=== PATIENT | female | born 1950 | race American Indian/Alaskan Native ===

== ENCOUNTER 2020-03-10 03:32 | Inpatient (IN) | payer MEDICARE ==
[2020-03-10] MEDS ORDERED: ALBUTEROL 2.5 MG/3 ML NEBU IH ONE (03:37)
[2020-03-10] MEDS ORDERED: IPRATROPIUM 0.02% NEBU 2.5 ML IH ONE (03:37)
[2020-03-10] MEDS ORDERED: MAGNESIUM SULFATE 2 GM/50 ML BAG IV ONE (03:39)
[2020-03-10] MEDS ORDERED: LEVALBUTEROL 0.63 MG/3 ML NEBU IH ONE ×2 (03:40→14:46)
--- NOTE | 2020-03-10 03:45 | Emergency Department Report ---
ED Shortness of Breath HPI - General Chief Complaint: Dyspnea/Respdistress Stated Complaint: MAKENZIE Time Seen by Provider: 03/10/20 03:37 Source: patient, EMS Mode of arrival: Stretcher Limitations: Other - History of Present Illness Initial Comments: 69-year-old female the past medical history of hypertension and COPD currently on 3 L home oxygen therapy presents to the hospital with respiratory distress. Patient woke up with shortness of breath and was found hypoxic by EMS while on her 3 L nasal cannula at home. Patient also had tachypnea and tachycardic in the 130's. She received IM Solu-Medrol in route and was placed on nonrebreather with improvement in O2 saturation of 100%. Pt has a cough productive of yellow sputum. Patient denies chest pain, fever, COVID exposure. She also denies history of cardiac disease, current smoking, or previous history of intubations. Patient does not have any previous record in [facility] for review - Related Data Home Medications Medication Instructions Recorded Confirmed Last Taken No Known Home Medications [No 03/11/20 03/11/20 Unknown Reported Home Medications] Allergies Allergy/AdvReac Type Severity Reaction Status Date / Time albuterol Allergy Unknown Verified 03/10/20 03:40 ED Review of Systems ROS: Stated complaint: MAKENZIE Other details as noted in HPI Comment: All other systems reviewed and negative ED Past Medical Hx - Past Medical History Previous Medical History?: Yes Hx Hypertension: Yes Hx COPD: Yes - Social History Smoking Status: Never Smoker Substance Use Type: None - Medications Home Medications: Home Medications Medication Instructions Recorded Confirmed Last Taken Type No Known Home Medications [No 03/11/20 03/11/20 Unknown History Reported Home Medications] ED Physical Exam - General Limitations: Other - Other Other exam information: General: Acute respiratory distress Head: Atraumatic Eyes: normal appearance ENT: Moist mucous membranes Neck: Normal appearance, no midline tenderness Chest: Tachypnea, says he must use, breathless with speaking, diminished bilateral breath sounds with wheezing CV: Tachycardic regular rhythm Abdomen: Soft, normal bowel sounds, nontender, nondistended, no rebound or guarding Back: Normal inspection Extremity: Mild bilateral edema without calf tenderness or leg exam Neuro: Alert O x 3, no facial asymmetry, speech clear, no gross motor sensory deficit Psych: Appropriate behavior Skin: No rash ED Course Vital Signs 03/10/20 03/10/2003/10/20 03:35 03:36 03:45 Temperature 99.0 F Pulse Rate 126 H 131 H Pulse Rate [ 116 H Anterior Bilateral Throughout] Respiratory 18 30 H Rate Respiratory 24 Rate [Anterior Bilateral Throughout] Blood Pressure Blood Pressure [Left] O2 Sat by Pulse 100 100 Oximetry 03/10/20 03/10/20 03/10/20 03:52 04:04 04:15 Temperature Pulse Rate 107 H 113 H Pulse Rate [ Anterior Bilateral Throughout] Respiratory 18 25 H Rate Respiratory Rate [Anterior Bilateral Throughout] Blood Pressure 109/65 Blood Pressure 165/88 [Left] O2 Sat by Pulse 91 100 Oximetry 03/10/20 03/10/20 03/10/20 04:20 04:23 04:30 Temperature Pulse Rate 111 H 116 H 114 H Pulse Rate [ Anterior Bilateral Throughout] Respiratory 25 H 22 Rate Respiratory Rate [Anterior Bilateral Throughout] Blood Pressure 104/64 Blood Pressure [Left] O2 Sat by Pulse 100 100 Oximetry 03/10/20 03/10/20 03/10/20 04:45 04:46 05:00 Temperature Pulse Rate 108 H 104 H 102 H Pulse Rate [ Anterior Bilateral Throughout] Respiratory 24 26 H 25 H Rate Respiratory Rate [Anterior Bilateral Throughout] Blood Pressure 107/86 107/86 107/62 Blood Pressure [Left] O2 Sat by Pulse 100 100 99 Oximetry 03/10/20 03/10/20 03/10/20 05:15 05:30 05:45 Temperature Pulse Rate 100 H 96 H 98 H Pulse Rate [ Anterior Bilateral Throughout] Respiratory 25 H 25 H 25 H Rate Respiratory Rate [Anterior Bilateral Throughout] Blood Pressure 111/61 110/60 108/59 Blood Pressure [Left] O2 Sat by Pulse 97 96 97 Oximetry 03/10/20 03/10/20 03/10/20 06:00 06:15 06:22 Temperature Pulse Rate 95 H 96 H Pulse Rate [ 102 H Anterior Bilateral Throughout] Respiratory 22 25 H Rate Respiratory 26 H Rate [Anterior Bilateral Throughout] Blood Pressure 112/58 113/64 Blood Pressure [Left] O2 Sat by Pulse 97 98 Oximetry 03/10/20 03/10/20 03/10/20 06:30 06:45 06:52 Temperature Pulse Rate 92 H 89 Pulse Rate [ Anterior Bilateral Throughout] Respiratory 25 H 25 H 30 H Rate Respiratory Rate [Anterior Bilateral Throughout] Blood Pressure 120/65 109/58 Blood Pressure [Left] O2 Sat by Pulse 98 99 100 Oximetry 03/10/20 03/10/20 03/10/20 08:15 08:30 08:45 Temperature Pulse Rate 93 H 101 H 98 H Pulse Rate [ Anterior Bilateral Throughout] Respiratory 25 H 16 23 Rate Respiratory Rate [Anterior Bilateral Throughout] Blood Pressure 113/62 123/66 111/65 Blood Pressure [Left] O2 Sat by Pulse 100 97 98 Oximetry 03/10/20 03/10/20 03/10/20 09:00 09:15 09:30 Temperature Pulse Rate 94 H 95 H 97 H Pulse Rate [ Anterior Bilateral Throughout] Respiratory 18 22 21 Rate Respiratory Rate [Anterior Bilateral Throughout] Blood Pressure 124/67 122/64 120/63 Blood Pressure [Left] O2 Sat by Pulse 97 98 99 Oximetry 03/10/20 03/10/20 03/10/20 09:45 10:00 10:15 Temperature Pulse Rate 98 H 100 H 102 H Pulse Rate [ Anterior Bilateral Throughout] Respiratory 24 24 23 Rate Respiratory Rate [Anterior Bilateral Throughout] Blood Pressure 117/61 118/65 118/59 Blood Pressure [Left] O2 Sat by Pulse 97 97 97 Oximetry 03/10/20 03/10/20 03/10/20 10:23 10:30 10:45 Temperature Pulse Rate 105 H 94 H Pulse Rate [ Anterior Bilateral Throughout] Respiratory 16 19 19 Rate Respiratory Rate [Anterior Bilateral Throughout] Blood Pressure 115/60 116/56 Blood Pressure [Left] O2 Sat by Pulse 97 99 Oximetry 03/10/20 03/10/20 03/10/20 11:00 11:15 11:30 Temperature Pulse Rate 88 86 86 Pulse Rate [ Anterior Bilateral Throughout] Respiratory 21 27 H 23 Rate Respiratory Rate [Anterior Bilateral Throughout] Blood Pressure 119/63 128/63 127/62 Blood Pressure [Left] O2 Sat by Pulse 98 98 98 Oximetry 03/10/20 03/10/20 03/10/20 11:45 12:01 12:15 Temperature Pulse Rate 102 H 94 H 86 Pulse Rate [ Anterior Bilateral Throughout] Respiratory 20 22 23 Rate Respiratory Rate [Anterior Bilateral Throughout] Blood Pressure 123/63 146/71 136/70 Blood Pressure [Left] O2 Sat by Pulse 99 99 100 Oximetry 03/10/20 03/10/20 03/10/20 12:30 12:45 13:00 Temperature Pulse Rate 89 88 96 H Pulse Rate [ Anterior Bilateral Throughout] Respiratory 29 H 22 22 Rate Respiratory Rate [Anterior Bilateral Throughout] Blood Pressure 142/74 135/68 142/75 Blood Pressure [Left] O2 Sat by Pulse 100 100 99 Oximetry 03/10/20 03/10/20 03/10/20 13:15 13:30 13:45 Temperature Pulse Rate 96 H 95 H 91 H Pulse Rate [ Anterior Bilateral Throughout] Respiratory 31 H 29 H 28 H Rate Respiratory Rate [Anterior Bilateral Throughout] Blood Pressure 135/78 142/74 147/77 Blood Pressure [Left] O2 Sat by Pulse 100 99 99 Oximetry 03/10/20 03/10/20 03/10/20 14:00 14:15 14:30 Temperature Pulse Rate 88 91 H 89 Pulse Rate [ Anterior Bilateral Throughout] Respiratory 20 20 23 Rate Respiratory Rate [Anterior Bilateral Throughout] Blood Pressure 134/69 145/80 141/74 Blood Pressure [Left] O2 Sat by Pulse 99 99 99 Oximetry 03/10/20 03/10/20 03/10/20 14:55 15:01 15:15 Temperature Pulse Rate Pulse Rate [ Anterior Bilateral Throughout] Respiratory Rate Respiratory Rate [Anterior Bilateral Throughout] Blood Pressure 141/74 141/74 118/73 Blood Pressure [Left] O2 Sat by Pulse 100 95 100 Oximetry 03/10/20 03/10/20 03/10/20 15:30 15:45 16:00 Temperature Pulse Rate 90 85 81 Pulse Rate [ Anterior Bilateral Throughout] Respiratory 25 H 18 22 Rate Respiratory Rate [Anterior Bilateral Throughout] Blood Pressure 130/73 124/69 132/71 Blood Pressure [Left] O2 Sat by Pulse 100 100 100 Oximetry 03/10/20 03/10/20 03/10/20 16:15 16:30 16:45 Temperature Pulse Rate 81 80 83 Pulse Rate [ Anterior Bilateral Throughout] Respiratory 25 H 18 25 H Rate Respiratory Rate [Anterior Bilateral Throughout] Blood Pressure 133/73 139/73 135/73 Blood Pressure [Left] O2 Sat by Pulse 100 100 100 Oximetry 03/10/20 03/10/20 03/10/20 17:01 17:15 17:30 Temperature Pulse Rate 122 H 96 H 94 H Pulse Rate [ Anterior Bilateral Throughout] Respiratory 27 H 16 17 Rate Respiratory Rate [Anterior Bilateral Throughout] Blood Pressure 142/80 142/75 143/74 Blood Pressure [Left] O2 Sat by Pulse 100 98 93 Oximetry 03/10/20 03/10/20 03/10/20 17:45 18:01 18:15 Temperature Pulse Rate 94 H 114 H 98 H Pulse Rate [ Anterior Bilateral Throughout] Respiratory 12 33 H 24 Rate Respiratory Rate [Anterior Bilateral Throughout] Blood Pressure 144/83 143/118 144/83 Blood Pressure [Left] O2 Sat by Pulse 91 84 90 Oximetry 03/10/20 03/10/20 03/10/20 18:31 18:45 19:01 Temperature Pulse Rate 118 H 98 H 115 H Pulse Rate [ Anterior Bilateral Throughout] Respiratory 38 H 21 33 H Rate Respiratory Rate [Anterior Bilateral Throughout] Blood Pressure 155/93 141/68 141/68 Blood Pressure [Left] O2 Sat by Pulse 79 L 100 100 Oximetry 03/10/20 03/10/20 03/10/20 19:15 19:31 19:45 Temperature Pulse Rate 104 H 96 H 88 Pulse Rate [ Anterior Bilateral Throughout] Respiratory 25 H 24 19 Rate Respiratory Rate [Anterior Bilateral Throughout] Blood Pressure 141/68 110/90 110/90 Blood Pressure [Left] O2 Sat by Pulse 100 100 100 Oximetry 03/10/20 03/10/20 03/10/20 20:01 20:15 20:31 Temperature Pulse Rate 88 86 85 Pulse Rate [ Anterior Bilateral Throughout] Respiratory 18 24 15 Rate Respiratory Rate [Anterior Bilateral Throughout] Blood Pressure 110/90 110/90 110/90 Blood Pressure [Left] O2 Sat by Pulse 100 100 100 Oximetry 03/10/20 23:42 Temperature 98.8 F Pulse Rate 110 H Pulse Rate [ Anterior Bilateral Throughout] Respiratory 20 Rate Respiratory Rate [Anterior Bilateral Throughout] Blood Pressure Blood Pressure 168/82 [Left] O2 Sat by Pulse 100 Oximetry ED Medical Decision Making - Lab Data Result diagrams: 03/11/20 05:05 03/12/20 04:31 - EKG Data -: EKG Interpreted by Pa EKG shows normal: sinus rhythm, ST-T waves (no stemi) Rate: tachycardia (106) - Radiology Data Radiology results: report reviewed CHEST 1 VIEW INDICATION / CLINICAL INFORMATION: sob. COMPARISON: None available. FINDINGS: SUPPORT DEVICES: None. HEART / MEDIASTINUM: No significant abnormality. LUNGS / PLEURA: Hyperinflation. Mild chronic appearing interstitial lung disease. No evidence of pneumonia or pleural effusion. No pneumothorax. ADDITIONAL FINDINGS: No significant additional findings. IMPRESSION: 1. COPD. No definite acute superimposed disease. - Medical Decision Making Patient presents to the ED with acute respiratory distress, tachycardia, and tachypnea. Patient's respiratory status greatly improved with BiPAP support, Xopenex, Atrovent, and IV magnesium. Patient received IM Solu-Medrol in route to the hospital. Chest x-ray suggestive of COPD without infiltrate. EKG showed mild sinus tachycardia without ischemic changes. Patient will be admitted to the hospital for further treatment of acute COPD exacerbation. Patient did develop a global headache after arrival to the ED. She denied blurry vision, nausea, vomiting, focal numbness or weakness. Patient treated with morphine 4 mg and Zofran 4 mg IV abg obtained with results pending at dispo Critical Care Time: Yes Critical care time in (mins) excluding proc time.: 35 Critical care attestation.: If time is entered above; I have spent that time in minutes in the direct care of this critically ill patient, excluding procedure time. ED Disposition Clinical Impression: COPD with acute exacerbation, On home O2 Disposition: OP ADMIT IP TO THIS HOSP Is pt being admited?: Yes Condition: Stable Time of Disposition: 05:04
--- NOTE | 2020-03-10 04:03 | XRay Report ---
CHEST 1 VIEW INDICATION / CLINICAL INFORMATION: sob. COMPARISON: None available. FINDINGS: SUPPORT DEVICES: None. HEART / MEDIASTINUM: No significant abnormality. LUNGS / PLEURA: Hyperinflation. Mild chronic appearing interstitial lung disease. No evidence of pneu monia or pleural effusion. No pneumothorax. ADDITIONAL FINDINGS: No significant additional findings. IMPRESSION: 1. COPD. No definite acute superimposed disease. Signer Name: Esther Waddell MD Signed: 03/10/2020 3:59 AM Workstation Name: [id number]
[2020-03-10] MEDS: LEVALBUTEROL 0.63 MG/3 ML NEBU IH PRN (04:28)
[2020-03-10] MEDS ORDERED: MORPHINE 4 MG/1 ML INJ IV ONE (04:36)
[2020-03-10] MEDS ORDERED: ONDANSETRON 4 MG/2 ML INJ IV ONE (04:36)
[2020-03-10 04:40] LABS: Basophils % (Auto) 0.9 % (0.0-1.8); Eosinophils # (Auto) 0.1 K/mm3 (0.0-0.4); Eosinophils % (Auto) 1.1 % (0.0-4.3); Hematocrit 34.4 % (30.3-42.9); Hemoglobin 11.1 gm/dl (10.1-14.3); Lymphocytes # (Auto) 1.1 K/mm3 (1.2-5.4); Lymphocytes % (Auto) 20.2 % (13.4-35.0); Mean Corpuscular HGB Conc 32 % (30-34); Mean Corpuscular Volume 94 fl (79-97); Monocytes # (Auto) 0.7 K/mm3 (0.0-0.8); Monocytes % (Auto) 12.8 % (0.0-7.3); Platelet Count 328 K/mm3 (140-440); Red Blood Count 3.66 M/mm3 (3.65-5.03); Red Cell Distribution Width 16.5 % (13.2-15.2)
[2020-03-10 04:42] LABS: Alanine Aminotransferase 11 units/L (7-56); BUN/Creatinine Ratio 16; Blood Urea Nitrogen 13 mg/dL (7-17); Calcium 9.8 mg/dL (8.4-10.2); Hemolysis Index 5
[2020-03-10 05:20] LABS: INR 1.01 (0.87-1.13)
[2020-03-10 05:21] LABS: Partial Thromboplastin Time 32.6 Sec. (24.2-36.6)
[2020-03-10 06:13] LABS: ABG Base Excess 1.5 mmol/L (-2.0-3.0); ABG HCO3 26.6 mmol/L (20.0-26.0); ABG Methemoglobin 0.5 % (0.0-1.5); ABG Oxygen Saturation 98.3 % (95.0-99.0); ABG PCO2 44.2 mm Hg; ABG PH 7.398 pH Units (7.350-7.450)
[2020-03-10] MEDS ORDERED: ACETAMINOPHEN 325 MG TAB PO PRN (07:59)
[2020-03-10] MEDS ORDERED: METOCLOPRAMIDE 10 MG/2 ML INJ IV PRN (07:59)
[2020-03-10] MEDS ORDERED: DEXTROSE 50% IN WATER (25GM) 50 ML SYRINGE IV PRN (07:59)
--- NOTE | 2020-03-10 08:18 | History and Physical Report ---
History of Present Illness Date of examination: 03/10/20 Date of admission: 03/10/20 05:32 Chief complaint: SOB History of present illness: This is a 70-year-old female with hypertension, COPD on home oxygen 2L NC, asthma, former smoker (1/2 ppd x 51 years- quit 2 years ago) who presents on 03/10 with complaints of difficulty in breathing since the morning. She states that she also was sweating and had palpitations which happens when she has difficulty breathing. She also becomes hypertensive with difficulty in breathing. She states she has had a productive cough with yellow sputum for about a week prior to presentation. Upon arrival by EMS she was found to be hypoxic on her usual 2 L of oxygen via nasal cannula, tachypneic and tachycardic in the 130s and subsequently placed on a nonrebreather and given IM Solu-Medrol and her SPO2 improved to 100%. She was transported to [facility] for further work-up by ambulance. She denies any chest pain, nausea vomiting, excessive fatigue, recent weight loss, recent travel or any contact with persons with known COVID-19. She endorses a left shoulder blade nonradiating burning pain for over a year and she states she has not had any recent falls. She states that she has had loose watery stools usually x3 per day on and off for about 3 months. She states there is no blood in her stools. Also complains of hemoptysis for the last couple days at night. States that she was in pulmonary rehab for about a year then moved to a personal intermediate and now lives at home with family and occasionally uses a walker at home. Work up in emergency department included a chest x-ray which showed COPD with no acute processes, unremarkable labs, and an ABG 7.3/44.2/121/26.6 on 30% FiO2. She was given Xopenex, Atrovent, IV m agnesium and placed on continuous BiPAP in the emergency department. She will be admitted to the hospitalist service to the [facility] in continues BiPAP, abx therapy and pulmonary care consult has been placed. Of note she does not have a primary care physician or followed by a fence erector outpatient. Advanced care planning done at bedside Past History Past Medical History: COPD, hypertension, other (asthma) Past Surgical History: cholecystectomy, Other (Lumbar discectomy) Social history: lives with family, full code. denies: smoking (1/2 ppd x 51 years- quit 2018), alcohol abuse, prescription drug abuse Family history: hypertension, other (Asthm,COPD) Medications and Allergies Allergies Allergy/AdvReac Type Severity Reaction Status Date / Time albuterol Allergy Unknown Verified 03/10/20 03:40 Active Meds: Active Medications Acetaminophen (Tylenol) 650 mg PO Q6H PRN PRN Reason: Pain MILD(1-3)/Fever >100.5/RABAGO Dextrose (D50w (25gm) Syringe) 50 ml IV Q30MIN PRN; Protocol PRN Reason: Hypoglycemia Enoxaparin Sodium (Enoxaparin) 40 mg SUB-Q QDAY@2200 OLEG Famotidine (Pepcid) 20 mg IV QDAY OLEG Insulin Human Lispro (Humalog) 0 unit SUB-Q ACHS OLEG; Protocol Ipratropium Broadbent (Atrovent) 0.5 mg IH Q8HRT OLEG Levalbuterol HCl (Xopenex) 0.63 mg IH Q8HRT PRN PRN Reason: Shortness Of Breath Metoclopramide HCl (Reglan) 10 mg IV Q6H PRN PRN Reason: Nausea And Vomiting Oxycodone/Acetaminophen (Percocet 5/325) 1 tab PO Q6H PRN PRN Reason: Pain, Moderate (4-6) Sodium Chloride (Sodium Chloride Flush Syringe 10 Ml) 10 ml IV BID OLEG Sodium Chloride (Sodium Chloride Flush Syringe 10 Ml) 10 ml IV PRN PRN PRN Reason: LINE FLUSH Review of Systems Constitutional: sweats (With difficulty breathing x1 day), no weight loss, no weight gain, no fever, no chills, no anorexia, no fatigue, no weakness, no malaise, no lethargy, no chronic headaches Eyes: right: other (" Busted eye vessel") Ears, nose, mouth and throat: nasal congestion, epistaxis (Over the past couple nights), headache (With elevated blood pressure), no ear pain, no ear discharge, no tinnitis, no decreased hearing, no nose pain, no nasal discharge, no sore throat, no post-nasal drip, no vertigo Cardiovascular: palpitations (With difficulty in breathing), shortness of breath (X1 day), high blood pressure, no chest pain, no orthopnea, no rapid/irregular heart beat, no edema, no syncope, no lightheadedness, no leg edema Respiratory: cough with sputum (Thick yellow sputum for 1 week), shortness of breath (For 1 day), home oxygen (2 L cannula), no excessive sputum, no hemoptysis Gastrointestinal: diarrhea (On and off for greater than a year), no abdominal pain, no nausea, no vomiting, no hematemesis, no BRBPR, no hematochezia Genitourinary Female: hematuria, no dyspareunia, no pelvic pain, no flank pain, no dysuria, no urinary frequency, no urgency Rectal: no pain, no incontinence, no bleeding, no itching Musculoskeletal: arm numbness/tingling (Hand with numbness and pinprick sensation for about 1 week), no neck pain, no shooting arm pain, no low back pain, no shooting leg pain, no leg numbness/tingling, no limitation of motion, no frequent falls Integumentary: no deferred, no rash, no pruritis, no redness, no sores, no wounds Neurological: numbness, tingling, no head injury, no transient paralysis, no paralysis, no weakness, no seizures, no syncope, no tremors, no ataxia, no lack of coordination, no headaches, no migraines, no double vision, no loss of vision, no hearing difficulties Psychiatric: no anxiety, no suicidal ideation, no hopelessness, no anxiety attacks Endocrine: nocturia, no cold intolerance, no heat intolerance, no polyphagia, no excessive thirst, no polydipsia, no polyuria Hematologic/Lymphatic: no easy bruising, no easy bleeding, no lymphadenopathy, no lymphedema Allergic/Immunologic: wheezing, no allergic rhinitis Exam - Constitutional Vitals: Temp Pulse Resp BP Pulse Ox 99.0 F 89 30 H 109/58 100 03/10/20 03:36 03/10/20 06:45 03/10/20 06:52 03/10/20 06:45 03/10/20 06:52 General appearance: Present: mild distress - EENT Eyes: Present: PERRL, EOM intact ENT: hearing intact, clear oral mucosa - Neck Neck: Present: normal ROM - Respiratory Respiratory effort: normal Respiratory: right: rhonchi, bilateral: wheezing (inspiratory) - Cardiovascular Rhythm: regular Heart Sounds: Present: S1 & S2. Absent: systolic murmur, diastolic murmur - Extremities Extremities: no ischemia, pulses intact, pulses symmetrical, No edema, normal temperature, normal color, Full ROM Extremity abnormal: clubbing Peripheral Pulses: within normal limits - Abdominal General gastrointestinal: Present: soft, non-tender, non-distended, normal bowel sounds - Integumentary Integumentary: Present: clear (scab to left FA), warm, dry - Musculoskeletal Musculoskeletal: strength equal bilaterally - Psychiatric Psychiatric: appropriate mood/affect, memory intact, cooperative - Neurologic Neurologic: CNII-XII intact, no focal deficits, moves all extremities HEART Score - HEART Score History: Slightly suspicious EKG: Normal Age: > 65 Troponin: Troponin T < 0.010 ng/mL (0.00-0.029) 03/10/20 03:54 Troponin: < normal limit Results - Labs CBC & Chem 7: 03/10/20 03:54 03/10/20 03:54 Labs: Laboratory Last Values WBC 5.6 K/mm3 (4.5-11.0) 03/10/20 03:54 RBC 3.66 M/mm3 (3.65-5.03) 03/10/20 03:54 Hgb 11.1 gm/dl (10.1-14.3) 03/10/20 03:54 Hct 34.4 % (30.3-42.9) 03/10/20 03:54 MCV 94 fl (79-97) 03/10/20 03:54 MCH 30 pg (28-32) 03/10/20 03:54 MCHC 32 % (30-34) 03/10/20 03:54 RDW 16.5 % (13.2-15.2) H 03/10/20 03:54 Plt Count 328 K/mm3 (140-440) 03/10/20 03:54 Lymph % (Auto) 20.2 % (13.4-35.0) 03/10/20 03:54 [place] % (Auto) 12.8 % (0.0-7.3) H 03/10/20 03:54 Eos % (Auto) 1.1 % (0.0-4.3) 03/10/20 03:54 Baso % (Auto) 0.9 % (0.0-1.8) 03/10/20 03:54 Lymph # 1.1 K/mm3 (1.2-5.4) L 03/10/20 03:54 [place] # 0.7 K/mm3 (0.0-0.8) 03/10/20 03:54 Eos # 0.1 K/mm3 (0.0-0.4) 03/10/20 03:54 Baso # 0.0 K/mm3 (0.0-0.1) 03/10/20 03:54 Seg Neutrophils % 65.0 % (40.0-70.0) 03/10/20 03:54 Seg Neutrophils # 3.6 K/mm3 (1.8-7.7) 03/10/20 03:54 PT 13.4 Sec. (12.2-14.9) 03/10/20 03:54 INR 1.01 (0.87-1.13) 03/10/20 03:54 APTT 32.6 Sec. (24.2-36.6) 03/10/20 03:54 ABG pH 7.398 pH Units (7.350-7.450) 03/10/20 05:20 ABG pCO2 44.2 mm Hg 03/10/20 05:20 ABG pO2 121.0 mm Hg (80.0-90.0) H 03/10/20 05:20 ABG HCO3 26.6 mmol/L (20.0-26.0) H 03/10/20 05:20 ABG O2 Saturation 98.3 % (95.0-99.0) 03/10/20 05:20 ABG O2 Content 14.4 (0.0-44) 03/10/20 05:20 ABG Base Excess 1.5 mmol/L (-2.0-3.0) 03/10/20 05:20 ABG Hemoglobin 10.5 gm/dl (12.0-16.0) L 03/10/20 05:20 ABG Carboxyhemoglobin 1.5 % (0.0-5.0) 03/10/20 05:20 ABG Methemoglobin 0.5 % (0.0-1.5) 03/10/20 05:20 Oxyhemoglobin 96.3 % (95.0-99.0) 03/10/20 05:20 FiO2 30 % 03/10/20 05:20 Sodium 146 mmol/L (137-145) H 03/10/20 03:54 Potassium 3.8 mmol/L (3.6-5.0) 03/10/20 03:54 Chloride 104.8 mmol/L (98-107) 03/10/20 03:54 Carbon Dioxide 29 mmol/L (22-30) 03/10/20 03:54 Anion Gap 16 mmol/L 03/10/20 03:54 BUN 13 mg/dL (7-17) 03/10/20 03:54 Creatinine 0.8 mg/dL (0.6-1.2) 03/10/20 03:54 Estimated GFR > 60 ml/min 03/10/20 03:54 BUN/Creatinine Ratio 16 % 03/10/20 03:54 Glucose 101 mg/dL (65-100) H 03/10/20 03:54 Calcium 9.8 mg/dL (8.4-10.2) 03/10/20 03:54 Total Bilirubin 0.30 mg/dL (0.1-1.2) 03/10/20 03:54 AST 16 units/L (5-40) 03/10/20 03:54 ALT 11 units/L (7-56) 03/10/20 03:54 Alkaline Phosphatase 60 units/L (35-129) 03/10/20 03:54 Troponin T < 0.010 ng/mL (0.00-0.029) 03/10/20 03:54 NT-Pro-B Natriuret Pep 170.1 pg/mL (0-900) 03/10/20 03:54 Total Protein 6.6 g/dL (6.3-8.2) 03/10/20 03:54 Albumin 4.0 g/dL (3.9-5) 03/10/20 03:54 Albumin/Globulin Ratio 1.5 % 03/10/20 03:54 - Imaging and Cardiology Chest x-ray: report reviewed - Diagnostic Impressions Diagnostic Impressions: 03/09 CXR no acute abnormalities except COPD changes noted. Rebollar/IV: IV Catheter Type [Right Hand] INT / Saline Lock Assessment and Plan VTE prophylaxis?: Chemical, Mechanical Plan of care discussed with patient/family: Yes - Patient Problems (1) COPD with acute exacerbation Current Visit: Yes Status: Acute Plan to address problem: -History of COPD uses home oxygen 2 L nasal cannula and asthma - On EMS arrival she was hypoxic and tachycardic was placed on a non rebreather with improvement of her SPO2 -Pulmonary consult, appreciate recommendations -Placed on continues BiPAP at emergency department and received Xopenex, Atrovent, IV magnesium -03/10 AB.3/44.2/121/26.6 on 30% FiO2 -IV Levaquin started -Atrovent, Xopenex, steroids started -Pulmonary hygiene -Continuous SPO2 monitor -RT to treat and evaluate (2) Hypertension Current Visit: Yes Status: Chronic Plan to address problem: -Resume home medications once updated -IV hydralazine PRN -Blood pressure monitoring per protocol (3) DVT prophylaxis Current Visit: Yes Status: Acute Plan to address problem: -Lovenox subcu -SCDs while in bed -GI prophylaxis with Pepcid IV (4) Full code status Current Visit: Yes Status: Acute
[2020-03-10] MEDS ORDERED: hydrALAZINE 20 MG/1 ML INJ IV PRN (09:06)
[2020-03-10] MEDS ORDERED: FAMOTIDINE 20 MG/2 ML INJ IV ONE (10:19)
[2020-03-10] MEDS ORDERED: oxyCODONE /ACETAMINOPHEN 5-325MG TAB ONE ×2 (10:20→17:37)
[2020-03-10] MEDS: FAMOTIDINE 20 MG/2 ML INJ IV SCH (10:23)
[2020-03-10] MEDS: oxyCODONE /ACETAMINOPHEN 5-325MG TAB PO PRN (10:23)
[2020-03-10] MEDS ORDERED: INSULIN LISPRO 100 UNIT/ML VIAL 3 mL SUB-Q SCH (11:30)
--- NOTE | 2020-03-10 12:23 | Consultation ---
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 Patient required bipap therapy secondary to increased work of breathing but has since been weaned off. Past History Past Medical History: COPD, hypertension, other (asthma) Past Surgical History: cholecystectomy, Other (Lumbar discectomy) Social history: lives with family, full code. denies: smoking (1/2 ppd x 51 years- quit 2017), alcohol abuse, prescription drug abuse Family history: hypertension, other (Asthm,COPD) Medications and Allergies Allergies Allergy/AdvReac Type Severity Reaction Status Date / Time albuterol Allergy Unknown Verified 03/10/20 03:40 Active Meds: Active Medications Acetaminophen (Tylenol) 650 mg PO Q6H PRN PRN Reason: Pain MILD(1-3)/Fever >100.5/RABAGO Enoxaparin Sodium (Enoxaparin) 40 mg SUB-Q QDAY@2200 OLEG Famotidine (Pepcid) 20 mg IV QDAY [facility] Last Admin: 03/10/20 10:23 Dose: 20 mg Documented by: Hydralazine HCl (Apresoline) 10 mg IV Q4HR PRN PRN Reason: Hypertension Levofloxacin/Dextrose (Levaquin 750mg/150ml) 750 mg in 150 mls @ 100 mls/hr IV Q48HR [facility]; Protocol Last Admin: 03/10/20 10:25 Dose: 100 mls/hr Documented by: Insulin Human Lispro (Humalog) 0 unit SUB-Q ACHS [facility]; Protocol Ipratropium [place] (Atrovent) 0.5 mg IH Q8HRT OLEG Levalbuterol HCl (Xopenex) 0.63 mg IH Q8HRT PRN PRN Reason: Shortness Of Breath Methylprednisolone Sodium Succinate (Solu-Medrol) 80 mg IV Q8HR OLEG Metoclopramide HCl (Reglan) 10 mg IV Q6H PRN PRN Reason: Nausea And Vomiting Oxycodone/Acetaminophen (Percocet 5/325) 1 tab PO Q6H PRN PRN Reason: Pain, Moderate (4-6) Last Admin: 08/19/20 10:23 Dose: 1 tab Documented by: Sodium Chloride (Sodium Chloride Flush Syringe 10 Ml) 10 ml IV BID OLEG Sodium Chloride (Sodium Chloride Flush Syringe 10 Ml) 10 ml IV PRN PRN PRN Reason: LINE FLUSH Physical Examination Vital signs: Vital Signs Pulse Resp Pulse Ox 126 H 18 100 03/10/20 03:35 03/10/20 03:35 03/10/20 03:35 General appearance: no acute distress, alert Eyes: non-icteric ENT: oropharynx moist Neck: supple, no JVD Effort: mildly labored Ascultation: Bilateral: diminished breath sounds Percussion: Bilateral: not dull Tactile fremitus: Bilateral: normal Cardiovascular: regular rate and rhythm Gastrointestinal: normoactive bowel sounds, soft, non-tender normal mental status, non-focal exam Results - Laboratory Findings CBC and BMP: 03/11/20 05:05 03/11/20 05:05 ABG ABG pH 7.398 pH Units (7.350-7.450) 03/10/20 05:20 ABG pCO2 44.2 mm Hg 03/10/20 05:20 ABG pO2 121.0 mm Hg (80.0-90.0) H 03/10/20 05:20 ABG O2 Saturation 98.3 % (95.0-99.0) 03/10/20 05:20 PT/INR, D-dimer PT 13.4 Sec. (12.2-14.9) 03/10/20 03:54 INR 1.01 (0.87-1.13) 03/10/20 03:54 Abnormal lab findings: Abnormal Labs 03/10/20 03/10/20 03/10/20 03:54 03:54 05:20 RDW 16.5 H [place] % (Auto) 12.8 H Lymph # 1.1 L ABG pO2 121.0 H ABG HCO3 26.6 H ABG Hemoglobin 10.5 L Sodium 146 H Glucose 101 H POC Glucose 03/10/20 09:02 RDW [place] % (Auto) Lymph # ABG pO2 ABG HCO3 ABG Hemoglobin Sodium Glucose POC Glucose 153 H - Diagnostic Findings Chest x-ray: image reviewed Assessment and Plan 70 y/o female with acute exacerbation of COPD 1. Agree with IV steroids 2. Suggest starting patient on BID pulmicort and brovana 3. Continue supplemental oxygen, per report, patient is on this at home 4. Calling the office to see if we have ever seen the patient before, we have never seen, it was confirmed. 5. Thanks for the consult. Will continue to follow with you.
[2020-03-10] MEDS: methylPREDNISolone Sod Succinate 125 MG/2 ML INJ IV SCH (14:26)
[2020-03-10] MEDS ORDERED: methylPREDNISolone Sod Succinate 125 MG/2 ML INJ ONE (14:46)
[2020-03-10] MEDS: IPRATROPIUM 0.02% NEBU 2.5 ML IH SCH (16:27)
[2020-03-10] MEDS: INSULIN LISPRO 100 UNIT/ML VIAL 3 mL SUB-Q SCH (17:25)
[2020-03-11] MEDS: LEVALBUTEROL 0.63 MG/3 ML NEBU IH PRN (00:39)
[2020-03-11] MEDS: IPRATROPIUM 0.02% NEBU 2.5 ML IH SCH ×4 (00:40→21:48)
[2020-03-11 05:31] LABS: Hematocrit 30.1 % (30.3-42.9); Hemoglobin 9.9 gm/dl (10.1-14.3); Mean Corpuscular HGB Conc 33 % (30-34); Mean Corpuscular Volume 92 fl (79-97); Platelet Count 275 K/mm3 (140-440); Red Blood Count 3.27 M/mm3 (3.65-5.03); Red Cell Distribution Width 16.1 % (13.2-15.2)
[2020-03-11 05:42] LABS: Blood Urea Nitrogen 18 mg/dL (7-17); Calcium 9.6 mg/dL (8.4-10.2); Hemolysis Index 11
[2020-03-11 05:47] LABS: BUN/Creatinine Ratio 26
[2020-03-11] MEDS: methylPREDNISolone Sod Succinate 125 MG/2 ML INJ IV SCH ×4 (06:41→21:44)
[2020-03-11 07:00] LABS: Band Neutrophils # (Manual) 0.4 K/mm3; Basophils % (Manual) 0 % (0.0-1.8); Eosinophils % (Manual) 0 % (0.0-4.3); Total Cells Counted 100
[2020-03-11 07:01] LABS: Ovalocytes Rare; Tear Drop Cells Rare
[2020-03-11 07:02] LABS: Platelet Estimate Consistent w Auto
[2020-03-11] MEDS: INSULIN LISPRO 100 UNIT/ML VIAL 3 mL SUB-Q SCH ×6 (07:54→21:45)
[2020-03-11] MEDS: ENOXAPARIN 40 MG/0.4 ML INJ SUB-Q SCH ×2 (07:55→21:45)
[2020-03-11] MEDS: BUDESONIDE 0.5 MG/2 ML NEBU IH SCH ×2 (08:21→21:47)
[2020-03-11] MEDS: ARFORMOTEROL 15 MCG/2 ML NEBU IH SCH ×2 (08:21→21:47)
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
[2020-03-11] MEDS: FAMOTIDINE 20 MG/2 ML INJ IV SCH (09:56)
[2020-03-11] MEDS: ALPRAZolam 0.25 MG TAB PO PRN (09:56)
[2020-03-11] MEDS: FAMOTIDINE 20 MG TAB PO SCH (09:58)
[2020-03-11] MEDS ORDERED: FUROSEMIDE 40 MG/4 ML INJ IV ONE (10:00)
[2020-03-11] MEDS: hydrALAZINE 25 MG TAB PO SCH ×2 (13:42→21:46)
--- NOTE | 2020-03-11 13:56 | Progress Note ---
Assessment and Plan - Patient Problems (1) COPD with acute exacerbation Current Visit: Yes Status: Acute Plan to address problem: -History of COPD uses home oxygen 2 L nasal cannula and asthma - On EMS arrival she was hypoxic and tachycardic was placed on a non rebreather with improvement of her SPO2 -Pulmonary consult, appreciate recommendations -Placed on continues BiPAP at emergency department and received Xopenex, Atrovent, IV magnesium -03/10 AB.3/44.2/121/26.6 on 30% FiO2 -IV Levaquin started -Atrovent, Xopenex, steroids started and added pulmicort and brovana -Pulmonary hygiene -Continuous SPO2 monitor -RT to treat and evaluate -SSI for steroid use -03/10 Hgb A1C: 4.9 (2) Hypertension Current Visit: Yes Status: Chronic Plan to address problem: -Hydralazine PO -IV hydralazine PRN -Blood pressure monitoring per protocol (3) DVT prophylaxis Current Visit: Yes Status: Acute Plan to address problem: -Lovenox subcu -SCDs while in bed -GI prophylaxis with Pepcid IV History Interval history: This is a 70-year-old female with hypertension, COPD on home oxygen 2L [place], asthma, former smoker (/ ppd x 51 years- quit 2 years ago) who presents on 03/10 with complaints of difficulty in breathing since the morning. S She states she has had a productive cough with yellow sputum for about a week prior to p resentation. Upon arrival by EMS she was found to be hypoxic on her usual 2 L of oxygen via nasal cannula, tachypneic and tachycardic in the 130s and subsequently placed on a nonrebreather and given IM Solu-Medrol and her SPO2 improved to 100%. Work up in emergency department included a chest x-ray which showed COPD with no acute processes, unremarkable labs, and an ABG 7.3/44.2/121/26.6 on 30% FiO2. She was weaned off BiPAP over the course the day yesterday and overnight she remained on nasal cannula. This morning she was placed on BiPAP for increased work of breathing and tachypnea hopefully being weaned off today. She was given Lasix 40 mg IV for elevated BNP and Ativan for anxiety. She will be transferred to [facility] today. -8/19: admit to [facility] for continuous BiPAP therapy however she was weaned off and was on nasal cannula over the night. Hospitalist Physical - Constitutional Vitals: Temp Pulse Resp BP Pulse Ox 97.7 F 75 32 H 122/74 99 03/11/20 08:00 03/11/20 13:42 03/11/20 08:21 03/11/20 13:42 03/11/20 04:00 General appearance: Present: no acute distress - EENT Eyes: Present: PERRL ENT: hearing intact - Neck Neck: Present: normal ROM - Respiratory Respiratory effort: normal Respiratory: bilateral: rhonchi - Cardiovascular Rhythm: regular Heart Sounds: Present: S1 & S2. Absent: systolic murmur, diastolic murmur - Extremities Extremities: no ischemia, pulses intact, pulses symmetrical, No edema, normal temperature, normal color, Full ROM Peripheral Pulses: within normal limits - Abdominal General gastrointestinal: soft, non-tender, non-distended, normal bowel sounds - Integumentary Integumentary: Present: clear, warm, dry - Psychiatric Psychiatric: appropriate mood/affect, cooperative - Neurologic Neurologic: CNII-XII intact, no focal deficits, moves all extremities - Allied Health Allied health notes reviewed: nursing, RT HEART Score - HEART Score EKG: Normal Age: > 65 Troponin: Troponin T < 0.010 ng/mL (0.00-0.029) 03/10/20 03:54 Troponin: < normal limit Results - Labs CBC & Chem 7: 03/11/20 05:05 03/11/20 05:05 Labs: Laboratory Last Values WBC 5.6 K/mm3 (4.5-11.0) 03/11/20 05:05 RBC 3.27 M/mm3 (3.65-5.03) L 03/11/20 05:05 Hgb 9.9 gm/dl (10.1-14.3) L 03/11/20 05:05 Hct 30.1 % (30.3-42.9) L 03/11/20 05:05 MCV 92 fl (79-97) 03/11/20 05:05 MCH 30 pg (28-32) 03/11/20 05:05 MCHC 33 % (30-34) 03/11/20 05:05 RDW 16.1 % (13.2-15.2) H 03/11/20 05:05 Plt Count 275 K/mm3 (140-440) 03/11/20 05:05 Lymph % (Auto) 20.2 % (13.4-35.0) 03/10/20 03:54 [place] % (Auto) 12.8 % (0.0-7.3) H 03/10/20 03:54 Eos % (Auto) 1.1 % (0.0-4.3) 03/10/20 03:54 Baso % (Auto) 0.9 % (0.0-1.8) 03/10/20 03:54 Lymph # 1.1 K/mm3 (1.2-5.4) L 03/10/20 03:54 [place] # 0.7 K/mm3 (0.0-0.8) 03/10/20 03:54 Eos # 0.1 K/mm3 (0.0-0.4) 03/10/20 03:54 Baso # 0.0 K/mm3 (0.0-0.1) 03/10/20 03:54 Add Manual Diff Complete 03/11/20 05:05 Total Counted 100 03/11/20 05:05 Seg Neutrophils % 65.0 % (40.0-70.0) 03/10/20 03:54 Seg Neuts % (Manual) 79.0 % (40.0-70.0) H 03/11/20 05:05 Band Neutrophils % 7.0 % 03/11/20 05:05 Lymphocytes % (Manual) 10.0 % (13.4-35.0) L 03/11/20 05:05 Reactive Lymphs % (Man) 0 % 03/11/20 05:05 Monocytes % (Manual) 4.0 % (0.0-7.3) 03/11/20 05:05 Eosinophils % (Manual) 0 % (0.0-4.3) 03/11/20 05:05 Basophils % (Manual) 0 % (0.0-1.8) 03/11/20 05:05 Metamyelocytes % 0 % 03/11/20 05:05 Myelocytes % 0 % 03/11/20 05:05 Promyelocytes % 0 % 03/11/20 05:05 Blast Cells % 0 % 03/11/20 05:05 Nucleated RBC % Not Reportable 03/11/20 05:05 Seg Neutrophils # 3.6 K/mm3 (1.8-7.7) 03/10/20 03:54 Seg Neutrophils # Man 4.4 K/mm3 (1.8-7.7) 03/11/20 05:05 Band Neutrophils # 0.4 K/mm3 03/11/20 05:05 Lymphocytes # (Manual) 0.6 K/mm3 (1.2-5.4) L 03/11/20 05:05 Abs React Lymphs (Man) 0.0 K/mm3 03/11/20 05:05 Monocytes # (Manual) 0.2 K/mm3 (0.0-0.8) 03/11/20 05:05 Eosinophils # (Manual) 0.0 K/mm3 (0.0-0.4) 03/11/20 05:05 Basophils # (Manual) 0.0 K/mm3 (0.0-0.1) 03/11/20 05:05 Metamyelocytes # 0.0 K/mm3 03/11/20 05:05 Myelocytes # 0.0 K/mm3 03/11/20 05:05 Promyelocytes # 0.0 K/mm3 03/11/20 05:05 Blast Cells # 0.0 K/mm3 03/11/20 05:05 WBC Morphology Not Reportable 03/11/20 05:05 Hypersegmented Neuts Not Reportable 03/11/20 05:05 Hyposegmented Neuts Not Reportable 03/11/20 05:05 Hypogranular Neuts Not Reportable 03/11/20 05:05 Smudge Cells Not Reportable 03/11/20 05:05 Toxic Granulation Not Reportable 03/11/20 05:05 Toxic Vacuolation Not Reportable 03/11/20 05:05 Dohle Bodies Not Reportable 03/11/20 05:05 Pelger-Huet Anomaly Not Reportable 03/11/20 05:05 Nilam Rods Not Reportable 03/11/20 05:05 Platelet Estimate Consistent w auto 03/11/20 05:05 Clumped Platelets Not Reportable 03/11/20 05:05 Plt Clumps, EDTA Not Reportable 03/11/20 05:05 Large Platelets Not Reportable 03/11/20 05:05 Giant Platelets Not Reportable 03/11/20 05:05 Platelet Satelliting Not Reportable 03/11/20 05:05 Plt Morphology Comment Not Reportable 03/11/20 05:05 RBC Morphology Not Reportable 03/11/20 05:05 Dimorphic RBCs Not Reportable 03/11/20 05:05 Polychromasia Not Reportable 03/11/20 05:05 Hypochromasia Not Reportable 03/11/20 05:05 Poikilocytosis Not Reportable 03/11/20 05:05 Anisocytosis Not Reportable 03/11/20 05:05 Microcytosis Not Reportable 03/11/20 05:05 Macrocytosis Not Reportable 03/11/20 05:05 Spherocytes Not Reportable 03/11/20 05:05 Pappenheimer Bodies Not Reportable 03/11/20 05:05 Sickle Cells Not Reportable 03/11/20 05:05 Target Cells Not Reportable 03/11/20 05:05 Tear Drop Cells Rare 03/11/20 05:05 Ovalocytes Rare 03/11/20 05:05 Helmet Cells Not Reportable 03/11/20 05:05 Quintero-Delevan Bodies Not Reportable 03/11/20 05:05 Perkins Rings Not Reportable 03/11/20 05:05 Moraima Cells Not Reportable 03/11/20 05:05 Bite Cells Not Reportable 03/11/20 05:05 Crenated Cell Not Reportable 03/11/20 05:05 Elliptocytes Not Reportable 03/11/20 05:05 Acanthocytes (Spur) Not Reportable 03/11/20 05:05 Rouleaux Not Reportable 03/11/20 05:05 Hemoglobin C Crystals Not Reportable 03/11/20 05:05 Schistocytes Not Reportable 03/11/20 05:05 Malaria parasites Not Reportable 03/11/20 05:05 Raul Bodies Not Reportable 03/11/20 05:05 Hem Pathologist Commnt No 03/11/20 05:05 PT 13.4 Sec. (12.2-14.9) 03/10/20 03:54 INR 1.01 (0.87-1.13) 03/10/20 03:54 APTT 32.6 Sec. (24.2-36.6) 03/10/20 03:54 ABG pH 7.398 pH Units (7.350-7.450) 03/10/20 05:20 ABG pCO2 44.2 mm Hg 03/10/20 05:20 ABG pO2 121.0 mm Hg (80.0-90.0) H 03/10/20 05:20 ABG HCO3 26.6 mmol/L (20.0-26.0) H 03/10/20 05:20 ABG O2 Saturation 98.3 % (95.0-99.0) 03/10/20 05:20 ABG O2 Content 14.4 (0.0-44) 03/10/20 05:20 ABG Base Excess 1.5 mmol/L (-2.0-3.0) 03/10/20 05:20 ABG Hemoglobin 10.5 gm/dl (12.0-16.0) L 03/10/20 05:20 ABG Carboxyhemoglobin 1.5 % (0.0-5.0) 03/10/20 05:20 ABG Methemoglobin 0.5 % (0.0-1.5) 03/10/20 05:20 Oxyhemoglobin 96.3 % (95.0-99.0) 03/10/20 05:20 FiO2 30 % 03/10/20 05:20 Sodium 142 mmol/L (137-145) 03/11/20 05:05 Potassium 4.6 mmol/L (3.6-5.0) D 03/11/20 05:05 Chloride 102.2 mmol/L (98-107) 03/11/20 05:05 Carbon Dioxide 30 mmol/L (22-30) 03/11/20 05:05 Anion Gap 14 mmol/L 03/11/20 05:05 BUN 18 mg/dL (7-17) H 03/11/20 05:05 Creatinine 0.7 mg/dL (0.6-1.2) 03/11/20 05:05 Estimated GFR > 60 ml/min 03/11/20 05:05 BUN/Creatinine Ratio 26 % 03/11/20 05:05 Glucose 188 mg/dL (65-100) H 03/11/20 05:05 POC Glucose 197 (70-105) H 03/11/20 13:16 Hemoglobin A1c 4.9 % (4-6) 03/10/20 08:35 Calcium 9.6 mg/dL (8.4-10.2) 03/11/20 05:05 Total Bilirubin 0.30 mg/dL (0.1-1.2) 03/10/20 03:54 AST 16 units/L (5-40) 03/10/20 03:54 ALT 11 units/L (7-56) 03/10/20 03:54 Alkaline Phosphatase 60 units/L (35-129) 03/10/20 03:54 Troponin T < 0.010 ng/mL (0.00-0.029) 03/10/20 03:54 NT-Pro-B Natriuret Pep 170.1 pg/mL (0-900) 03/10/20 03:54 Total Protein 6.6 g/dL (6.3-8.2) 03/10/20 03:54 Albumin 4.0 g/dL (3.9-5) 03/10/20 03:54 Albumin/Globulin Ratio 1.5 % 03/10/20 03:54 Rebollar/IV: IV Catheter Type [Right Hand] INT / Saline Lock Active Medications - Current Medications Current Medications: Generic Name Dose Route Start Last Admin Trade Name Freq PRN Reason Stop Dose Admin Acetaminophen 650 mg 03/10/20 07:59 Tylenol PO Q6H PRN Pain MILD(1-3)/Fever >100.5/RABAGO Alprazolam 0.25 mg 03/11/20 09:18 03/11/20 09:56 Xanax PO 0.25 mg Q8H PRN Administration Anxiety Arformoterol Tartrate 15 mcg 03/11/20 08:00 03/11/20 08:21 Brovana Nebu IH 15 mcg Q12HRT OLEG Administration Budesonide 0.5 mg 03/11/20 08:00 03/11/20 08:21 Pulmicort IH 0.5 mg Q12HRT OLEG Administration Enoxaparin Sodium 40 mg 03/10/20 22:00 03/11/20 07:55 Enoxaparin SUB-Q Not Given QDAY@2200 OLEG Famotidine 20 mg 03/11/20 10:00 03/11/20 09:58 Pepcid PO Not Given DAILY OLEG Hydralazine HCl 10 mg 03/10/20 09:06 Apresoline IV Q4HR PRN Hypertension Hydralazine HCl 25 mg 03/11/20 14:00 03/11/20 13:42 Apresoline PO 25 mg Q8HR OLEG Administration Insulin Human Lispro 0 unit 03/10/20 11:30 03/11/20 13:14 Humalog SUB-Q 2 unit ACHS OLEG Administration Protocol Ipratropium [place] 0.5 mg 03/10/20 16:00 03/11/20 08:21 Atrovent IH 0.5 mg Q8HRT OLEG Administration Levalbuterol HCl 0.63 mg 03/10/20 08:07 03/11/20 00:39 Xopenex IH 0.63 mg Q8HRT PRN Administration Shortness Of Breath Levofloxacin 750 mg 03/12/20 10:00 Levaquin PO 03/16/20 10:01 Q48HR OLEG Methylprednisolone Sodium Succinate 80 mg 03/10/20 14:00 03/11/20 13:43 Solu-Medrol IV 80 mg Q8HR OLEG Administration Metoclopramide HCl 10 mg 03/10/20 07:59 Reglan IV Q6H PRN Nausea And Vomiting Oxycodone/Acetaminophen 1 tab 03/10/20 07:59 03/10/20 10:23 Percocet 5/325 PO 1 tab Q6H PRN Administration Pain, Moderate (4-6) Sodium Chloride 10 ml 03/10/20 10:00 03/11/20 09:56 Sodium Chloride Flush Syringe 10 Ml IV 10 ml BID OLEG Administration Sodium Chloride 10 ml 03/10/20 07:59 Sodium Chloride Flush Syringe 10 Ml IV PRN PRN LINE FLUSH
[2020-03-12] MEDS: IPRATROPIUM 0.02% NEBU 2.5 ML IH SCH ×3 (00:58→15:03)
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
[2020-03-12] MEDS: methylPREDNISolone Sod Succinate 40 MG/1 ML INJ IV SCH ×3 (06:03→21:50)
[2020-03-12] MEDS: hydrALAZINE 25 MG TAB PO SCH ×3 (06:03→21:49)
[2020-03-12 06:47] LABS: Blood Urea Nitrogen 31 mg/dL (7-17); Calcium 10.1 mg/dL (8.4-10.2); Hemolysis Index 81
[2020-03-12 06:52] LABS: BUN/Creatinine Ratio 44
[2020-03-12] MEDS: BUDESONIDE 0.5 MG/2 ML NEBU IH SCH ×2 (07:57→19:54)
[2020-03-12] MEDS: ARFORMOTEROL 15 MCG/2 ML NEBU IH SCH ×2 (07:57→19:54)
[2020-03-12] MEDS: INSULIN LISPRO 100 UNIT/ML VIAL 3 mL SUB-Q SCH ×4 (08:30→22:00)
[2020-03-12] MEDS: levoFLOXacin 750 MG TAB PO SCH (09:33)
[2020-03-12] MEDS: FAMOTIDINE 20 MG TAB PO SCH (09:33)
[2020-03-12] MEDS: ALPRAZolam 0.25 MG TAB PO PRN ×2 (09:37→21:49)
--- NOTE | 2020-03-12 12:09 | Progress Note ---
Assessment and Plan - Patient Problems (1) COPD with acute exacerbation Current Visit: Yes Status: Acute Plan to address problem: -History of COPD uses home oxygen 2 L nasal cannula and asthma - On EMS arrival she was hypoxic and tachycardic was placed on a non rebreather with improvement of her SPO2 -Pulmonary consult, appreciate recommendations -Placed on continues BiPAP at emergency department and received Xopenex, Atrovent, IV magnesium -03/10 AB.3/44.2/121/26.6 on 30% FiO2 -IV Levaquin started -Atrovent, Xopenex, steroids started and added pulmicort and brovana -Pulmonary hygiene -Continuous SPO2 monitor -RT to treat and evaluate -SSI for steroid use -03/10 Hgb A1C: 4.9 (2) Hypertension Current Visit: Yes Status: Chronic Plan to address problem: -Hydralazine PO - Added lasix 20mg qday -IV hydralazine PRN -Blood pressure monitoring per protocol (3) DVT prophylaxis Current Visit: Yes Status: Acute Plan to address problem: -Lovenox subcu -SCDs while in bed -GI prophylaxis with Pepcid IV History Interval history: This is a 70-year-old female with hypertension, COPD on home oxygen 2L NC, asthma, former smoker (/ ppd x 51 years- quit 2 years ago) who presents on 03/10 with complaints of difficulty in breathing since the morning. S She states she has had a productive cough with yellow sputum for about a week prior to presentation. Upon arrival by EMS she was found to be hypoxic on her usual 2 L of oxygen via nasal cannula, tachypneic and tachycardic in the 130s and subsequently placed on a nonrebreather and given IM Solu-Medrol and her SPO2 improved to 100%. Work up in emergency department included a chest x-ray which showed COPD with no acute processes, unremarkable labs, and an ABG 7.3 /44.2/121/26.6 on 30% FiO2. She wore her BiPAP overnight and is on NC at the time of my exam. Lasix PO added per pulm suggestion. CM consulted for placement/social issues and claims of financial mishandling per patient. She states she was working on finding a new place to live and would like to return the [facility] where she was after pulmonary rehab. -03/10: admit to IMCU for continuous BiPAP therapy however she was weaned off and was on nasal cannula over the night. -03/11: transferred to med/surg. used BiPAP overnight. IV lasix and ativan Hospitalist Physical - Constitutional Vitals: Temp Pulse Resp BP Pulse Ox 98.4 F 85 18 141/77 94 03/12/20 04:29 03/12/20 07:57 03/12/20 07:57 03/12/20 06:03 03/12/20 07:58 General appearance: Present: no acute distress HEART Score - HEART Score EKG: Normal Age: > 65 Troponin: Troponin T < 0.010 ng/mL (0.00-0.029) 03/10/20 03:54 Troponin: < normal limit Results - Labs CBC & Chem 7: 03/11/20 05:05 03/12/20 04:31 Labs: Laboratory Last Values WBC 5.6 K/mm3 (4.5-11.0) 03/11/20 05:05 RBC 3.27 M/mm3 (3.65-5.03) L 03/11/20 05:05 Hgb 9.9 gm/dl (10.1-14.3) L 03/11/20 05:05 Hct 30.1 % (30.3-42.9) L 03/11/20 05:05 MCV 92 fl (79-97) 03/11/20 05:05 MCH 30 pg (28-32) 03/11/20 05:05 MCHC 33 % (30-34) 03/11/20 05:05 RDW 16.1 % (13.2-15.2) H 03/11/20 05:05 Plt Count 275 K/mm3 (140-440) 03/11/20 05:05 Lymph % (Auto) 20.2 % (13.4-35.0) 03/10/20 03:54 [place] % (Auto) 12.8 % (0.0-7.3) H 03/10/20 03:54 Eos % (Auto) 1.1 % (0.0-4.3) 03/10/20 03:54 Baso % (Auto) 0.9 % (0.0-1.8) 03/10/20 03:54 Lymph # 1.1 K/mm3 (1.2-5.4) L 03/10/20 03:54 [place] # 0.7 K/mm3 (0.0-0.8) 03/10/20 03:54 Eos # 0.1 K/mm3 (0.0-0.4) 03/10/20 03:54 Baso # 0.0 K/mm3 (0.0-0.1) 03/10/20 03:54 Add Manual Diff Complete 03/11/20 05:05 Total Counted 100 03/11/20 05:05 Seg Neutrophils % 65.0 % (40.0-70.0) 03/10/20 03:54 Seg Neuts % (Manual) 79.0 % (40.0-70.0) H 03/11/20 05:05 Band Neutrophils % 7.0 % 03/11/20 05:05 Lymphocytes % (Manual) 10.0 % (13.4-35.0) L 03/11/20 05:05 Reactive Lymphs % (Man) 0 % 03/11/20 05:05 Monocytes % (Manual) 4.0 % (0.0-7.3) 03/11/20 05:05 Eosinophils % (Manual) 0 % (0.0-4.3) 03/11/20 05:05 Basophils % (Manual) 0 % (0.0-1.8) 03/11/20 05:05 Metamyelocytes % 0 % 03/11/20 05:05 Myelocytes % 0 % 03/11/20 05:05 Promyelocytes % 0 % 03/11/20 05:05 Blast Cells % 0 % 03/11/20 05:05 Nucleated RBC % Not Reportable 03/11/20 05:05 Seg Neutrophils # 3.6 K/mm3 (1.8-7.7) 03/10/20 03:54 Seg Neutrophils # Man 4.4 K/mm3 (1.8-7.7) 03/11/20 05:05 Band Neutrophils # 0.4 K/mm3 03/11/20 05:05 Lymphocytes # (Manual) 0.6 K/mm3 (1.2-5.4) L 03/11/20 05:05 Abs React Lymphs (Man) 0.0 K/mm3 03/11/20 05:05 Monocytes # (Manual) 0.2 K/mm3 (0.0-0.8) 03/11/20 05:05 Eosinophils # (Manual) 0.0 K/mm3 (0.0-0.4) 03/11/20 05:05 Basophils # (Manual) 0.0 K/mm3 (0.0-0.1) 03/11/20 05:05 Metamyelocytes # 0.0 K/mm3 03/11/20 05:05 Myelocytes # 0.0 K/mm3 03/11/20 05:05 Promyelocytes # 0.0 K/mm3 03/11/20 05:05 Blast Cells # 0.0 K/mm3 03/11/20 05:05 WBC Morphology Not Reportable 03/11/20 05:05 Hypersegmented Neuts Not Reportable 03/11/20 05:05 Hyposegmented Neuts Not Reportable 03/11/20 05:05 Hypogranular Neuts Not Reportable 03/11/20 05:05 Smudge Cells Not Reportable 03/11/20 05:05 Toxic Granulation Not Reportable 03/11/20 05:05 Toxic Vacuolation Not Reportable 03/11/20 05:05 Dohle Bodies Not Reportable 03/11/20 05:05 Pelger-Huet Anomaly Not Reportable 03/11/20 05:05 Nilam Rods Not Reportable 03/11/20 05:05 Platelet Estimate Consistent w auto 03/11/20 05:05 Clumped Platelets Not Reportable 03/11/20 05:05 Plt Clumps, EDTA Not Reportable 03/11/20 05:05 Large Platelets Not Reportable 03/11/20 05:05 Giant Platelets Not Reportable 03/11/20 05:05 Platelet Satelliting Not Reportable 03/11/20 05:05 Plt Morphology Comment Not Reportable 03/11/20 05:05 RBC Morphology Not Reportable 03/11/20 05:05 Dimorphic RBCs Not Reportable 03/11/20 05:05 Polychromasia Not Reportable 03/11/20 05:05 Hypochromasia Not Reportable 03/11/20 05:05 Poikilocytosis Not Reportable 03/11/20 05:05 Anisocytosis Not Reportable 03/11/20 05:05 Microcytosis Not Reportable 03/11/20 05:05 Macrocytosis Not Reportable 03/11/20 05:05 Spherocytes Not Reportable 03/11/20 05:05 Pappenheimer Bodies Not Reportable 03/11/20 05:05 Sickle Cells Not Reportable 03/11/20 05:05 Target Cells Not Reportable 03/11/20 05:05 Tear Drop Cells Rare 03/11/20 05:05 Ovalocytes Rare 03/11/20 05:05 Helmet Cells Not Reportable 03/11/20 05:05 Quintero-Mcnab Bodies Not Reportable 03/11/20 05:05 [place] Rings Not Reportable 03/11/20 05:05 [place] Cells Not Reportable 03/11/20 05:05 Bite Cells Not Reportable 03/11/20 05:05 Crenated Cell Not Reportable 03/11/20 05:05 Elliptocytes Not Reportable 03/11/20 05:05 Acanthocytes (Spur) Not Reportable 03/11/20 05:05 Rouleaux Not Reportable 03/11/20 05:05 Hemoglobin C Crystals Not Reportable 03/11/20 05:05 Schistocytes Not Reportable 03/11/20 05:05 Malaria parasites Not Reportable 03/11/20 05:05 Raul Bodies Not Reportable 03/11/20 05:05 Hem Pathologist Commnt No 03/11/20 05:05 PT 13.4 Sec. (12.2-14.9) 03/10/20 03:54 INR 1.01 (0.87-1.13) 03/10/20 03:54 APTT 32.6 Sec. (24.2-36.6) 03/10/20 03:54 ABG pH 7.398 pH Units (7.350-7.450) 03/10/20 05:20 ABG pCO2 44.2 mm Hg 03/10/20 05:20 ABG pO2 121.0 mm Hg (80.0-90.0) H 03/10/20 05:20 ABG HCO3 26.6 mmol/L (20.0-26.0) H 03/10/20 05:20 ABG O2 Saturation 98.3 % (95.0-99.0) 03/10/20 05:20 ABG O2 Content 14.4 (0.0-44) 03/10/20 05:20 ABG Base Excess 1.5 mmol/L (-2.0-3.0) 03/10/20 05:20 ABG Hemoglobin 10.5 gm/dl (12.0-16.0) L 03/10/20 05:20 ABG Carboxyhemoglobin 1.5 % (0.0-5.0) 03/10/20 05:20 ABG Methemoglobin 0.5 % (0.0-1.5) 03/10/20 05:20 Oxyhemoglobin 96.3 % (95.0-99.0) 03/10/20 05:20 FiO2 30 % 03/10/20 05:20 Sodium 142 mmol/L (137-145) 03/12/20 04:31 Potassium 4.4 mmol/L (3.6-5.0) 03/12/20 04:31 Chloride 101.2 mmol/L (98-107) 03/12/20 04:31 Carbon Dioxide 25 mmol/L (22-30) 03/12/20 04:31 Anion Gap 20 mmol/L 03/12/20 04:31 BUN 31 mg/dL (7-17) H 03/12/20 04:31 Creatinine 0.7 mg/dL (0.6-1.2) 03/12/20 04:31 Estimated GFR > 60 ml/min 03/12/20 04:31 BUN/Creatinine Ratio 44 % 03/12/20 04:31 Glucose 139 mg/dL (65-100) H 03/12/20 04:31 POC Glucose 161 (70-105) H 03/12/20 08:16 Hemoglobin A1c 4.9 % (4-6) 03/10/20 08:35 Calcium 10.1 mg/dL (8.4-10.2) 03/12/20 04:31 Total Bilirubin 0.30 mg/dL (0.1-1.2) 03/10/20 03:54 AST 16 units/L (5-40) 03/10/20 03:54 ALT 11 units/L (7-56) 03/10/20 03:54 Alkaline Phosphatase 60 units/L (35-129) 03/10/20 03:54 Troponin T < 0.010 ng/mL (0.00-0.029) 03/10/20 03:54 NT-Pro-B Natriuret Pep 170.1 pg/mL (0-900) 03/10/20 03:54 Total Protein 6.6 g/dL (6.3-8.2) 03/10/20 03:54 Albumin 4.0 g/dL (3.9-5) 03/10/20 03:54 Albumin/Globulin Ratio 1.5 % 03/10/20 03:54 Rebollar/IV: Voiding Method External Female Catheter IV Catheter Type [Right Hand] INT / Saline Lock Active Medications - Current Medications Current Medications: Generic Name Dose Route Start Last Admin Trade Name Freq PRN Reason Stop Dose Admin Acetaminophen 650 mg 03/10/20 07:59 Tylenol PO Q6H PRN Pain MILD(1-3)/Fever >100.5/RABAGO Alprazolam 0.25 mg 03/11/20 09:18 03/12/20 09:37 Xanax PO 0.25 mg Q8H PRN Administration Anxiety Arformoterol Tartrate 15 mcg 03/11/20 08:00 03/12/20 07:57 Brovana Nebu IH 15 mcg Q12HRT OLEG Administration Budesonide 0.5 mg 03/11/20 08:00 03/12/20 07:57 Pulmicort IH 0.5 mg Q12HRT OLEG Administration Enoxaparin Sodium 40 mg 03/10/20 22:00 03/11/20 21:45 Enoxaparin SUB-Q 40 mg QDAY@2200 O[facility]G Administration Famotidine 20 mg 03/11/20 10:00 03/12/20 09:33 Pepcid PO 20 mg DAILY OLEG Administration Furosemide 20 mg 03/13/20 10:00 Lasix PO QDAY OLEG Hydralazine HCl 10 mg 03/10/20 09:06 Apresoline IV Q4HR PRN Hypertension Hydralazine HCl 25 mg 03/11/20 14:00 03/12/20 06:03 Apresoline PO 25 mg Q8HR OLEG Administration Insulin Human Lispro 0 unit 03/10/20 11:30 03/12/20 08:30 Humalog SUB-Q 2 unit ACHS OLEG Administration Protocol Ipratropium [place] 0.5 mg 03/10/20 16:00 03/12/20 07:59 Atrovent IH Not Given Q8HRT OLEG Levalbuterol HCl 0.63 mg 03/10/20 08:07 03/11/20 00:39 Xopenex IH 0.63 mg Q8HRT PRN Administration Shortness Of Breath Levofloxacin 750 mg 03/12/20 10:00 03/12/20 09:33 Levaquin PO 03/16/20 10:01 750 mg Q48HR OLEG Administration Methylprednisolone Sodium Succinate 40 mg 03/12/20 06:00 03/12/20 06:03 Solu-Medrol IV 40 mg Q8HR OLEG Administration Metoclopramide HCl 10 mg 03/10/20 07:59 Reglan IV Q6H PRN Nausea And Vomiting Oxycodone/Acetaminophen 1 tab 03/10/20 07:59 03/10/20 10:23 Percocet 5/325 PO 1 tab Q6H PRN Administration Pain, Moderate (4-6) Sodium Chloride 10 ml 03/10/20 10:00 03/12/20 09:33 Sodium Chloride Flush Syringe 10 Ml IV 10 ml BID OLEG Administration Sodium Chloride 10 ml 03/10/20 07:59 Sodium Chloride Flush Syringe 10 Ml IV PRN PRN LINE FLUSH
[2020-03-12] MEDS: LEVALBUTEROL 0.63 MG/3 ML NEBU IH PRN (13:12)
[2020-03-12] MEDS: oxyCODONE /ACETAMINOPHEN 5-325MG TAB PO PRN (21:49)
[2020-03-12] MEDS: ENOXAPARIN 40 MG/0.4 ML INJ SUB-Q SCH (21:50)
[2020-03-13] MEDS: IPRATROPIUM 0.02% NEBU 2.5 ML IH SCH ×3 (00:10→15:08)
[2020-03-13] MEDS: hydrALAZINE 25 MG TAB PO SCH ×3 (05:03→22:01)
[2020-03-13] MEDS: methylPREDNISolone Sod Succinate 40 MG/1 ML INJ IV SCH ×3 (05:03→22:01)
[2020-03-13] MEDS: BUDESONIDE 0.5 MG/2 ML NEBU IH SCH ×2 (08:31→22:03)
[2020-03-13] MEDS: ARFORMOTEROL 15 MCG/2 ML NEBU IH SCH ×2 (08:32→22:03)
[2020-03-13] MEDS: INSULIN LISPRO 100 UNIT/ML VIAL 3 mL SUB-Q SCH ×4 (08:35→22:18)
[2020-03-13] MEDS: FUROSEMIDE 40 MG TAB PO SCH (09:05)
[2020-03-13] MEDS: FAMOTIDINE 20 MG TAB PO SCH (09:06)
[2020-03-13] MEDS ORDERED: FUROSEMIDE 40 MG TAB PO SCH (10:00)
[2020-03-13] MEDS: ALPRAZolam 0.25 MG TAB PO PRN (10:57)
--- NOTE | 2020-03-13 18:26 | Progress Note ---
Assessment and Plan Imp: 1. Centrilobular emphysema 2. COPD exac. 3. A/C respiratory failure, hypoxia 4. Hypernatremia Rec: 1. Cont. current care; not ready to d/c home today Plan of care reviewed w/ patient, she understands/agrees Subjective Date of service: 03/13/20 Principal diagnosis: COPD exac. Interval history: No events. SOB and wheezing still but a little better. No new complaints. Active Medications Acetaminophen (Tylenol) 650 mg PO Q6H PRN PRN Reason: Pain MILD(1-3)/Fever >100.5/RABAGO Last Admin: 03/13/20 18:19 Dose: 650 mg Documented by: Alprazolam (Xanax) 0.25 mg PO Q8H PRN PRN Reason: Anxiety Last Admin: 03/13/20 10:57 Dose: 0.25 mg Documented by: Arformoterol Tartrate (Brovana Nebu) 15 mcg IH Q12HRT [facility] Last Admin: 03/13/20 08:32 Dose: 15 mcg Documented by: Budesonide (Pulmicort) 0.5 mg IH Q12HRT [facility] Last Admin: 03/13/20 08:31 Dose: 0.5 mg Documented by: Enoxaparin Sodium (Enoxaparin) 40 mg SUB-Q QDAY@2200 [facility] Last Admin: 03/12/20 21:50 Dose: 40 mg Documented by: Famotidine (Pepcid) 20 mg PO DAILY [facility] Last Admin: 03/13/20 09:06 Dose: 20 mg Documented by: Furosemide (Lasix) 20 mg PO QDAY [facility] Last Admin: 03/13/20 09:05 Dose: 20 mg Documented by: Hydralazine HCl (Apresoline) 10 mg IV Q4HR PRN PRN Reason: Hypertension Hydralazine HCl (Apresoline) 25 mg PO Q8HR [facility] Last Admin: 03/13/20 13:03 Dose: 25 mg Documented by: Insulin Human Lispro (Humalog) 0 unit SUB-Q [facility]; Protocol Last Admin: 03/13/20 16:59 Dose: 2 unit Documented by: Ipratropium [place] (Atrovent) 0.5 mg IH Q8HRT [facility] Last Admin: 03/13/20 15:08 Dose: 0.5 mg Documented by: Levalbuterol HCl (Xopenex) 0.63 mg IH Q8HRT PRN PRN Reason: Shortness Of Breath Last Admin: 03/12/20 13:12 Dose: 0.63 mg Documented by: Levofloxacin (Levaquin) 750 mg PO Q48HR [facility] Stop: 03/16/20 10:01 Last Admin: 03/12/20 09:33 Dose: 750 mg Documented by: Methylprednisolone Sodium Succinate (Solu-Medrol) 40 mg IV Q8HR [facility] Last Admin: 03/13/20 13:02 Dose: 40 mg Documented by: Metoclopramide HCl (Reglan) 10 mg IV Q6H PRN PRN Reason: Nausea And Vomiting Oxycodone/Acetaminophen (Percocet 5/325) 1 tab PO Q6H PRN PRN Reason: Pain, Moderate (4-6) Last Admin: 03/12/20 21:49 Dose: 1 tab Documented by: Sodium Chloride (Sodium Chloride Flush Syringe 10 Ml) 10 ml IV BID [facility] Last Admin: 03/13/20 09:06 Dose: 10 ml Documented by: Sodium Chloride (Sodium Chloride Flush Syringe 10 Ml) 10 ml IV PRN PRN PRN Reason: LINE FLUSH Objective Vital Signs - 12hr 03/13/20 03/13/20 03/13/20 09:14 11:38 13:03 Temperature 98.1 F Pulse Rate 101 H Respiratory 20 Rate Blood Pressure 135/78 135/78 O2 Sat by Pulse 98 100 Oximetry Constitutional: no acute distress, alert Eyes: non-icteric ENT: oropharynx moist Neck: supple Effort: mildly labored Ascultation: Bilateral: wheezes Percussion: Bilateral: not dull Tactile fremitus: Bilateral: normal Cardiovascular: regular rate and rhythm Gastrointestinal: normoactive bowel sounds, soft, non-tender, non-distended Extremities: no cyanosis, no edema, pink and warm Neurologic: normal mental status, non-focal exam Psychiatric: mood appropriate, affect normal CBC and BMP: 03/11/20 05:05 03/12/20 04:31 ABG, PT/INR, D-dimer: ABG ABG pH 7.398 pH Units (7.350-7.450) 03/10/20 05:20 ABG pCO2 44.2 mm Hg 03/10/20 05:20 ABG pO2 121.0 mm Hg (80.0-90.0) H 03/10/20 05:20 ABG O2 Saturation 98.3 % (95.0-99.0) 03/10/20 05:20 PT/INR, D-dimer PT 13.4 Sec. (12.2-14.9) 03/10/20 03:54 INR 1.01 (0.87-1.13) 03/10/20 03:54 Abnormal lab findings: Abnormal Labs 03/10/20 03/10/20 03/10/20 03:54 03:54 05:20 RBC Hgb Hct RDW 16.5 H [place] % (Auto) 12.8 H Lymph # 1.1 L Seg Neuts % (Manual) Lymphocytes % (Manual) Lymphocytes # (Manual) ABG pO2 121.0 H ABG HCO3 26.6 H ABG Hemoglobin 10.5 L Sodium 146 H BUN Glucose 101 H POC Glucose 03/10/20 03/10/20 03/11/20 09:02 20:08 05:05 RBC 3.27 L Hgb 9.9 L Hct 30.1 L RDW 16.1 H [place] % (Auto) Lymph # Seg Neuts % (Manual) 79.0 H Lymphocytes % (Manual) 10.0 L Lymphocytes # (Manual) 0.6 L ABG pO2 ABG HCO3 ABG Hemoglobin Sodium BUN Glucose POC Glucose 153 H 198 H 03/11/20 03/11/20 03/11/20 05:05 13:16 16:35 RBC Hgb Hct RDW [place] % (Auto) Lymph # Seg Neuts % (Manual) Lymphocytes % (Manual) Lymphocytes # (Manual) ABG pO2 ABG HCO3 ABG Hemoglobin Sodium BUN 18 H Glucose 188 H POC Glucose 197 H 200 H 03/11/20 03/12/20 03/12/20 21:24 04:31 08:16 RBC Hgb Hct RDW [place] % (Auto) Lymph # Seg Neuts % (Manual) Lymphocytes % (Manual) Lymphocytes # (Manual) ABG pO2 ABG HCO3 ABG Hemoglobin Sodium BUN 31 H Glucose 139 H POC Glucose 108 H 161 H 03/12/20 03/12/20 03/12/20 12:22 12:32 17:26 RBC Hgb Hct RDW [place] % (Auto) Lymph # Seg Neuts % (Manual) Lymphocytes % (Manual) Lymphocytes # (Manual) ABG pO2 ABG HCO3 ABG Hemoglobin Sodium BUN Glucose POC Glucose 134 H 125 H 220 H 03/12/20 03/13/20 03/13/20 22:04 07:46 11:53 RBC Hgb Hct RDW [place] % (Auto) Lymph # Seg Neuts % (Manual) Lymphocytes % (Manual) Lymphocytes # (Manual) ABG pO2 ABG HCO3 ABG Hemoglobin Sodium BUN Glucose POC Glucose 149 H 204 H 226 H 03/13/20 16:55 RBC Hgb Hct RDW [place] % (Auto) Lymph # Seg Neuts % (Manual) Lymphocytes % (Manual) Lymphocytes # (Manual) ABG pO2 ABG HCO3 ABG Hemoglobin Sodium BUN Glucose POC Glucose 151 H Chest x-ray: report reviewed, image reviewed
[2020-03-13] MEDS: ENOXAPARIN 40 MG/0.4 ML INJ SUB-Q SCH (22:01)
[2020-03-14] MEDS: IPRATROPIUM 0.02% NEBU 2.5 ML IH SCH ×5 (00:53→22:05)
[2020-03-14] MEDS: hydrALAZINE 25 MG TAB PO SCH ×3 (06:42→21:23)
[2020-03-14] MEDS: methylPREDNISolone Sod Succinate 40 MG/1 ML INJ IV SCH ×3 (06:42→21:15)
[2020-03-14] MEDS: INSULIN LISPRO 100 UNIT/ML VIAL 3 mL SUB-Q SCH ×4 (08:41→21:17)
[2020-03-14] MEDS: prednisoLONE ACETATE 1% OPHTH SUSP 5 ML OU SCH ×2 (09:11→21:15)
[2020-03-14] MEDS: levoFLOXacin 750 MG TAB PO SCH (09:13)
[2020-03-14] MEDS: FUROSEMIDE 40 MG TAB PO SCH (09:13)
[2020-03-14] MEDS: ALPRAZolam 0.25 MG TAB PO PRN (09:13)
[2020-03-14] MEDS: FAMOTIDINE 20 MG TAB PO SCH (09:18)
[2020-03-14] MEDS: ARFORMOTEROL 15 MCG/2 ML NEBU IH SCH ×2 (10:14→22:05)
[2020-03-14] MEDS: BUDESONIDE 0.5 MG/2 ML NEBU IH SCH ×2 (10:14→22:05)
--- NOTE | 2020-03-14 15:35 | Progress Note ---
Assessment and Plan Imp: 1. Centrilobular emphysema 2. COPD exac. 3. A/C respiratory failure, hypoxia 4. Hypernatremia Rec: 1. Cont. current care including IV Solumedrol; not ready to d/c home today; consider SNF if continued non-improvement Plan of care reviewed w/ patient, she understands/agrees Subjective Date of service: 03/14/20 Principal diagnosis: COPD exac. Interval history: No events. SOB and wheezing is the same and she still has significant COLE gettin g out of bed. No new complaints. Active Medications Acetaminophen (Tylenol) 650 mg PO Q6H PRN PRN Reason: Pain MILD(1-3)/Fever >100.5/RABAGO Last Admin: 03/13/20 18:19 Dose: 650 mg Documented by: Alprazolam (Xanax) 0.25 mg PO Q8H PRN PRN Reason: Anxiety Last Admin: 03/14/20 09:13 Dose: 0.25 mg Documented by: Arformoterol Tartrate (Brovana Nebu) 15 mcg IH Q12HRT [facility] Last Admin: 03/14/20 10:14 Dose: 15 mcg Documented by: Bisacodyl (Dulcolax) 10 mg PO QDAY PRN PRN Reason: Constipation Last Admin: 03/14/20 09:12 Dose: 10 mg Documented by: Bisacodyl (Dulcolax) 10 mg ME QDAY PRN PRN Reason: Constipation Budesonide (Pulmicort) 0.5 mg IH Q12HRT [facility] Last Admin: 03/14/20 10:14 Dose: 0.5 mg Documented by: Enoxaparin Sodium (Enoxaparin) 40 mg SUB-Q QDAY@2200 [facility] Last Admin: 03/13/20 22:01 Dose: 40 mg Documented by: Famotidine (Pepcid) 20 mg PO DAILY [facility] Last Admin: 03/14/20 09:18 Dose: 20 mg Documented by: Furosemide (Lasix) 20 mg PO QDAY [facility] Last Admin: 03/14/20 09:13 Dose: 20 mg Documented by: Hydralazine HCl (Apresoline) 10 mg IV Q4HR PRN PRN Reason: Hypertension Hydralazine HCl (Apresoline) 25 mg PO Q8HR [facility] Last Admin: 03/14/20 15:26 Dose: 25 mg Documented by: Insulin Human Lispro (Humalog) 0 unit SUB-Q ACHS [facility]; Protocol Last Admin: 03/14/20 12:38 Dose: Not Given Documented by: Ipratropium [place] (Atrovent) 0.5 mg IH Q8HRT [facility] Last Admin: 03/14/20 10:15 Dose: 0.5 mg Documented by: Levalbuterol HCl (Xopenex) 0.63 mg IH Q8HRT PRN PRN Reason: Shortness Of Breath Last Admin: 03/12/20 13:12 Dose: 0.63 mg Documented by: Levofloxacin (Levaquin) 750 mg PO Q48HR [facility] Stop: 03/16/20 10:01 Last Admin: 03/14/20 09:13 Dose: 750 mg Documented by: Methylprednisolone Sodium Succinate (Solu-Medrol) 40 mg IV Q8HR [facility] Last Admin: 03/14/20 15:26 Dose: 40 mg Documented by: Metoclopramide HCl (Reglan) 10 mg IV Q6H PRN PRN Reason: Nausea And Vomiting Oxycodone/Acetaminophen (Percocet 5/325) 1 tab PO Q6H PRN PRN Reason: Pain, Moderate (4-6) Last Admin: 03/12/20 21:49 Dose: 1 tab Documented by: Prednisolone Acetate (Pred Forte 1%) 1 drops OU BID [facility] Last Admin: 03/14/20 09:11 Dose: 1 drops Documented by: Sodium Chloride (Sodium Chloride Flush Syringe 10 Ml) 10 ml IV BID [facility] Last Admin: 03/14/20 09:14 Dose: 10 ml Documented by: Sodium Chloride (Sodium Chloride Flush Syringe 10 Ml) 10 ml IV PRN PRN PRN Reason: LINE FLUSH Objective Vital Signs - 12hr 03/14/20 03/14/20 03/14/20 06:40 06:42 10:00 Temperature 98.6 F Pulse Rate 74 73 Pulse Rate [ Throughout] Respiratory 18 Rate Respiratory Rate [ Throughout] Blood Pressure 144/63 144/63 O2 Sat by Pulse 98 97 Oximetry 03/14/20 03/14/20 03/14/20 10:35 11:27 15:26 Temperature 98.3 F Pulse Rate 125 H Pulse Rate [ 97 H Throughout] Respiratory 20 Rate Respiratory 24 Rate [ Throughout] Blood Pressure 147/90 140/68 O2 Sat by Pulse 100 Oximetry Constitutional: no acute distress, alert Eyes: non-icteric ENT: oropharynx moist Neck: supple Effort: mildly labored Ascultation: Bilateral: diminished breath sounds, wheezes Percussion: Bilateral: not dull Tactile fremitus: Bilateral: normal Cardiovascular: regular rate and rhythm Gastrointestinal: normoactive bowel sounds, soft, non-tender, non-distended Extremities: no cyanosis, no edema, pink and warm Neurologic: normal mental status, non-focal exam Psychiatric: mood appropriate, affect normal CBC and BMP: 03/11/20 05:05 03/12/20 04:31 ABG, PT/INR, D-dimer: ABG ABG pH 7.398 pH Units (7.350-7.450) 03/10/20 05:20 ABG pCO2 44.2 mm Hg 03/10/20 05:20 ABG pO2 121.0 mm Hg (80.0-90.0) H 03/10/20 05:20 ABG O2 Saturation 98.3 % (95.0-99.0) 03/10/20 05:20 PT/INR, D-dimer PT 13.4 Sec. (12.2-14.9) 03/10/20 03:54 INR 1.01 (0.87-1.13) 03/10/20 03:54 Abnormal lab findings: Abnormal Labs 03/10/20 03/10/20 03/10/20 03:54 03:54 05:20 RBC Hgb Hct RDW 16.5 H [place] % (Auto) 12.8 H Lymph # 1.1 L Seg Neuts % (Manual) Lymphocytes % (Manual) Lymphocytes # (Manual) ABG pO2 121.0 H ABG HCO3 26.6 H ABG Hemoglobin 10.5 L Sodium 146 H BUN Glucose 101 H POC Glucose 03/10/20 03/10/20 03/11/20 09:02 20:08 05:05 RBC 3.27 L Hgb 9.9 L Hct 30.1 L RDW 16.1 H [place] % (Auto) Lymph # Seg Neuts % (Manual) 79.0 H Lymphocytes % (Manual) 10.0 L Lymphocytes # (Manual) 0.6 L ABG pO2 ABG HCO3 ABG Hemoglobin Sodium BUN Glucose POC Glucose 153 H 198 H 03/11/20 03/11/20 03/11/20 05:05 13:16 16:35 RBC Hgb Hct RDW [place] % (Auto) Lymph # Seg Neuts % (Manual) Lymphocytes % (Manual) Lymphocytes # (Manual) ABG pO2 ABG HCO3 ABG Hemoglobin Sodium BUN 18 H Glucose 188 H POC Glucose 197 H 200 H 03/11/20 03/12/20 03/12/20 21:24 04:31 08:16 RBC Hgb Hct RDW [place] % (Auto) Lymph # Seg Neuts % (Manual) Lymphocytes % (Manual) Lymphocytes # (Manual) ABG pO2 ABG HCO3 ABG Hemoglobin Sodium BUN 31 H Glucose 139 H POC Glucose 108 H 161 H 03/12/20 03/12/20 03/12/20 12:22 12:32 17:26 RBC Hgb Hct RDW [place] % (Auto) Lymph # Seg Neuts % (Manual) Lymphocytes % (Manual) Lymphocytes # (Manual) ABG pO2 ABG HCO3 ABG Hemoglobin Sodium BUN Glucose POC Glucose 134 H 125 H 220 H 03/12/20 03/13/20 03/13/20 22:04 07:46 11:53 RBC Hgb Hct RDW [place] % (Auto) Lymph # Seg Neuts % (Manual) Lymphocytes % (Manual) Lymphocytes # (Manual) ABG pO2 ABG HCO3 ABG Hemoglobin Sodium BUN Glucose POC Glucose 149 H 204 H 226 H 03/13/20 03/13/20 03/14/20 16:55 21:59 08:28 RBC Hgb Hct RDW [place] % (Auto) Lymph # Seg Neuts % (Manual) Lymphocytes % (Manual) Lymphocytes # (Manual) ABG pO2 ABG HCO3 ABG Hemoglobin Sodium BUN Glucose POC Glucose 151 H 196 H 171 H Chest x-ray: report reviewed, image reviewed
--- NOTE | 2020-03-14 17:56 | Progress Note ---
Assessment and Plan (1) COPD with acute exacerbation Current Visit: Yes Status: Acute Plan to address problem: -History of COPD uses home oxygen 2 L nasal cannula and asthma - On EMS arrival she was hypoxic and tachycardic was placed on a non rebreather with improvement of her SPO2 -Pulmonary consult, appreciate recommendations -Placed on continues BiPAP at emergency department and received Xopenex, Atrovent, IV magnesium -03/10 AB.3/44.2/121/26.6 on 30% FiO2 -IV Levaquin started -Atrovent, Xopenex, steroids started and added pulmicort and brovana -Pulmonary hygiene -Continuous SPO2 monitor -RT to treat and evaluate -SSI for steroid use -03/10 Hgb A1C: 4.9 Weaning in progress Solu-Medrol being decreased (2) Hypertension Current Visit: Yes Status: Chronic Plan to address problem: -Hydralazine PO - Added lasix 20mg qday -IV hydralazine PRN -Blood pressure monitoring per protocol Blood pressure stable (3) DVT prophylaxis Current Visit: Yes Status: Acute Plan to address problem: -Lovenox subcu -SCDs while in bed -GI prophylaxis with Pepcid IV Subjective Date of service: 03/13/20 Principal diagnosis: COPD exac. Interval history: History Interval history: This is a 70-year-old female with hypertension, COPD on home oxygen 2L NC, asthma, former smoker (1/2 ppd x 51 years- quit 2 years ago) who presents on 03/10 with complaints of difficulty in breathing since the morning. S She states she has had a productive cough with yellow sputum for about a week prior to presentation. Upon arrival by EMS she was found to be hypoxic on her usual 2 L of oxygen via nasal cannula, tachypneic and tachycardic in the 130s and subsequently placed on a nonrebreather and given IM Solu-Medrol and her SPO2 improved to 100%. Work up in emergency department included a chest x-ray which showed COPD with no acute processes, unremarkable labs, and an ABG 7.3/44.2/121/26.6 on 30% FiO2. She wore her BiPAP overnight and is on NC at the time of my exam. Lasix PO added per pulm suggestion. CM consulted for placement/social issues and claims of financial mishandling per patient. She states she was working on finding a new place to live and would like to return the [facility] where she was after pulmonary rehab. -03/10: admit to IMCU for continuous BiPAP therapy however she was weaned off and was on nasal cannula over the night. -03/11: transferred to med/surg. used BiPAP overnight. IV lasix and ativan Still wheezing Objective - Constitutional Vitals: Vital Signs - 12hr 03/14/20 03/14/20 03/14/20 06:40 06:42 10:00 Temperature 98.6 F Pulse Rate 74 73 Pulse Rate [ Throughout] Respiratory 18 Rate Respiratory Rate [ Throughout] Blood Pressure 144/63 144/63 O2 Sat by Pulse 98 97 Oximetry 03/14/20 03/14/20 03/14/20 10:35 11:27 15:26 Temperature 98.3 F Pulse Rate 125 H Pulse Rate [ 97 H Throughout] Respiratory 20 Rate Respiratory 24 Rate [ Throughout] Blood Pressure 147/90 140/68 O2 Sat by Pulse 100 Oximetry 03/14/20 03/14/20 15:55 16:28 Temperature Pulse Rate Pulse Rate [ 102 H Throughout] Respiratory Rate Respiratory 22 Rate [ Throughout] Blood Pressure O2 Sat by Pulse 97 Oximetry General appearance: Present: mild distress, well-nourished - EENT Eyes: PERRL, EOM intact ENT: hearing intact, clear oral mucosa Ears: bilateral: normal - Neck Neck: supple, normal ROM - Respiratory Respiratory effort: normal Respiratory: bilateral: CTA, wheezing (Scattered rhonchi) - Breasts Breasts: normal - Cardiovascular Heart rate: 78 Rhythm: regular Heart Sounds: Present: S1 & S2. Absent: gallop, rub Extremities: pulses intact, No edema, normal color, Full ROM - Gastrointestinal General gastrointestinal: Present: soft, non-tender, non-distended, normal bowel sounds - Genitourinary Female genitourinary: normal - Integumentary Integumentary: clear, warm, dry - Musculoskeletal Musculoskeletal: 1, strength equal bilaterally - Neurologic Neurologic: moves all extremities - Psychiatric Psychiatric: memory intact, appropriate mood/affect, intact judgment & insight - Labs CBC & Chem 7: 03/11/20 05:05 03/12/20 04:31 Labs: Abnormal lab results 03/13/20 03/14/20 03/14/20 Range/Units 21:59 08:28 17:11 POC Glucose 196 H 171 H 134 H (70-105) HEART Score - HEART Score EKG: Normal Age: > 65 Troponin: Troponin T < 0.010 ng/mL (0.00-0.029) 03/10/20 03:54 Troponin: < normal limit
--- NOTE | 2020-03-14 17:59 | Progress Note ---
Assessment and Plan (1) COPD with acute exacerbation Current Visit: Yes Status: Acute Plan to address problem: -History of COPD uses home oxygen 2 L nasal cannula and asthma - On EMS arrival she was hypoxic and tachycardic was placed on a non rebreather with improvement of her SPO2 -Pulmonary consult, appreciate recommendations -Placed on continues BiPAP at emergency department and received Xopenex, Atrovent, IV magnesium -03/10 AB.3/44.2/121/26.6 on 30% FiO2 -IV Levaquin started -Atrovent, Xopenex, steroids started and added pulmicort and brovana -Pulmonary hygiene -Continuous SPO2 monitor -RT to treat and evaluate -SSI for steroid use -03/10 Hgb A1C: 4.9 Weaning in progress Solu-Medrol being decreased (2) Hypertension Current Visit: Yes Status: Chronic Plan to address problem: -Hydralazine PO - Added lasix 20mg qday -IV hydralazine PRN -Blood pressure monitoring per protocol Blood pressure stable (3) DVT prophylaxis Current Visit: Yes Status: Acute Plan to address problem: -Lovenox subcu -SCDs while in bed -GI prophylaxis with Pepcid IV Subjective Date of service: 03/14/20 Principal diagnosis: COPD exac. Interval history: This is a 70-year-old female with hypertension, COPD on home oxygen 2L [place], asthma, former smoker (1/2 ppd x 51 years- quit 2 years ago) who presents on 03/10 with complaints of difficulty in breathing since the morning. S She states she has had a productive cough with yellow sputum for about a week prior to presentation. Upon arrival by EMS she was found to be hypoxic on her usual 2 L of oxygen via nasal cannula, tachypneic and tachycardic in the 130s and subsequently placed on a nonrebreather and given IM Solu-Medrol and her SPO2 i mproved to 100%. Work up in emergency department included a chest x-ray which showed COPD with no acute processes, unremarkable labs, and an ABG 7.3/44.2/121/26.6 on 30% FiO2. She wore her BiPAP overnight and is on NC at the time of my exam. Lasix PO added per pulm suggestion. CM consulted for plac ement/social issues and claims of financial mishandling per patient. She states she was working on finding a new place to live and would like to return the [facility] where she was after pulmonary rehab. -03/10: admit to IMCU for continuous BiPAP therapy however she was weaned off and was on nasal cannula over the night. -03/11: transferred to med/surg. used BiPAP overnight. IV lasix and ativan Still wheezing Objective - Constitutional Vitals: Vital Signs - 12hr 03/14/20 03/14/20 03/14/20 06:40 06:42 10:00 Temperature 98.6 F Pulse Rate 74 73 Pulse Rate [ Throughout] Respiratory 18 Rate Respiratory Rate [ Throughout] Blood Pressure 144/63 144/63 O2 Sat by Pulse 98 97 Oximetry 03/14/20 03/14/20 03/14/20 10:35 11:27 15:26 Temperature 98.3 F Pulse Rate 125 H Pulse Rate [ 97 H Throughout] Respiratory 20 Rate Respiratory 24 Rate [ Throughout] Blood Pressure 147/90 140/68 O2 Sat by Pulse 100 Oximetry 03/14/20 03/14/20 15:55 16:28 Temperature Pulse Rate Pulse Rate [ 102 H Throughout] Respiratory Rate Respiratory 22 Rate [ Throughout] Blood Pressure O2 Sat by Pulse 97 Oximetry General appearance: Present: no acute distress, well-nourished - EENT Eyes: PERRL, EOM intact ENT: hearing intact, clear oral mucosa Ears: bilateral: normal - Neck Neck: supple, normal ROM - Respiratory Respiratory effort: normal Respiratory: bilateral: CTA - Breasts Breasts: normal - Cardiovascular Rhythm: regular Heart Sounds: Present: S1 & S2. Absent: gallop, rub Extremities: pulses intact, No edema, normal color, Full ROM - Gastrointestinal General gastrointestinal: Present: soft, non-tender, non-distended, normal bowel sounds - Genitourinary Female genitourinary: normal - Integumentary Integumentary: clear, warm, dry - Musculoskeletal Musculoskeletal: 1, strength equal bilaterally - Neurologic Neurologic: moves all extremities - Psychiatric Psychiatric: memory intact, appropriate mood/affect, intact judgment & insight - Labs CBC & Chem 7: 03/11/20 05:05 03/12/20 04:31 Labs: Abnormal lab results 03/13/20 03/14/20 03/14/20 Range/Units 21:59 08:28 17:11 POC Glucose 196 H 171 H 134 H (70-105) HEART Score - HEART Score EKG: Normal Age: > 65 Troponin: Troponin T < 0.010 ng/mL (0.00-0.029) 03/10/20 03:54 Troponin: < normal limit
[2020-03-14] MEDS: oxyCODONE /ACETAMINOPHEN 5-325MG TAB PO PRN (18:15)
[2020-03-14] MEDS: ENOXAPARIN 40 MG/0.4 ML INJ SUB-Q SCH (21:21)
[2020-03-15] MEDS: hydrALAZINE 25 MG TAB PO SCH ×3 (06:06→21:52)
[2020-03-15] MEDS: methylPREDNISolone Sod Succinate 40 MG/1 ML INJ IV SCH ×3 (06:06→21:50)
[2020-03-15] MEDS: IPRATROPIUM 0.02% NEBU 2.5 ML IH SCH ×2 (08:13→15:19)
[2020-03-15] MEDS: BUDESONIDE 0.5 MG/2 ML NEBU IH SCH ×2 (08:13→19:56)
[2020-03-15] MEDS: ARFORMOTEROL 15 MCG/2 ML NEBU IH SCH ×2 (08:13→19:55)
--- NOTE | 2020-03-15 08:49 | Progress Note ---
Assessment and Plan 70 y/o female with acute exacerbation of COPD 1. Continue steroids at 40q8 through today, can likely change to either 20q8 or 60 daily starting tomorrow. 2. Continue BID Pulmicort and Brovana 3. Continue supplemental oxygen, per report, patient is on this at home 4. Patient continues to refuse nighttime PPV. Maybe her machine was taken from her for lack of use/compliance? Appreciate RT continuing to document. Will continue the order. 5. Given degree of COPD, patient likely would benefit from PPV at night, however she continues to refuse it. This is likely adding to persistent dyspnea. My partner over the weekend suggested SNF, no objection to this. 6. Needs better blood pressure control. Ok with increasing lasix but likely will need a second agent. Subjective Date of service: 03/15/20 Principal diagnosis: COPD exac. Interval history: Patient continues to refuse PPV at night. Satting very well on 3 liters NC. Still dyspnic with exertion. Still on IV steroids. No further documentation of severe agitation at night. Objective Vital Signs - 12hr 03/14/20 03/14/20 03/14/20 21:16 21:23 22:07 Temperature 98.9 F Pulse Rate 93 H 96 H Pulse Rate [ 102 H Throughout] Respiratory 18 Rate Respiratory 20 Rate [ Throughout] Blood Pressure 129/63 129/63 O2 Sat by Pulse 99 Oximetry 03/14/20 03/15/20 03/15/20 22:08 05:07 06:06 Temperature 98.0 F Pulse Rate 70 97 H Pulse Rate [ Throughout] Respiratory 18 Rate Respiratory Rate [ Throughout] Blood Pressure 146/63 146/63 O2 Sat by Pulse 100 97 Oximetry 03/15/20 03/15/20 08:00 08:16 Temperature Pulse Rate Pulse Rate [ 97 H Throughout] Respiratory Rate Respiratory 20 Rate [ Throughout] Blood Pressure O2 Sat by Pulse 100 Oximetry Constitutional: no acute distress, alert Eyes: non-icteric ENT: oropharynx moist Neck: supple Effort: mildly labored Ascultation: Bilateral: diminished breath sounds, wheezes Percussion: Bilateral: not dull Tactile fremitus: Bilateral: normal Cardiovascular: regular rate and rhythm Gastrointestinal: normoactive bowel sounds, soft, non-tender, non-distended Extremities: no cyanosis, no edema, pink and warm Neurologic: normal mental status, non-focal exam Psychiatric: mood appropriate, affect normal CBC and BMP: 03/11/20 05:05 03/12/20 04:31 ABG, PT/INR, D-dimer: ABG ABG pH 7.398 pH Units (7.350-7.450) 03/10/20 05:20 ABG pCO2 44.2 mm Hg 03/10/20 05:20 ABG pO2 121.0 mm Hg (80.0-90.0) H 03/10/20 05:20 ABG O2 Saturation 98.3 % (95.0-99.0) 03/10/20 05:20 PT/INR, D-dimer PT 13.4 Sec. (12.2-14.9) 03/10/20 03:54 INR 1.01 (0.87-1.13) 03/10/20 03:54 Abnormal lab findings: Abnormal Labs 03/10/20 03/10/20 03/10/20 03:54 03:54 05:20 RBC Hgb Hct RDW 16.5 H [place] % (Auto) 12.8 H Lymph # 1.1 L Seg Neuts % (Manual) Lymphocytes % (Manual) Lymphocytes # (Manual) ABG pO2 121.0 H ABG HCO3 26.6 H ABG Hemoglobin 10.5 L Sodium 146 H BUN Glucose 101 H POC Glucose 03/10/20 03/10/20 03/11/20 09:02 20:08 05:05 RBC 3.27 L Hgb 9.9 L Hct 30.1 L RDW 16.1 H [place] % (Auto) Lymph # Seg Neuts % (Manual) 79.0 H Lymphocytes % (Manual) 10.0 L Lymphocytes # (Manual) 0.6 L ABG pO2 ABG HCO3 ABG Hemoglobin Sodium BUN Glucose POC Glucose 153 H 198 H 03/11/20 03/11/20 03/11/20 05:05 13:16 16:35 RBC Hgb Hct RDW [place] % (Auto) Lymph # Seg Neuts % (Manual) Lymphocytes % (Manual) Lymphocytes # (Manual) ABG pO2 ABG HCO3 ABG Hemoglobin Sodium BUN 18 H Glucose 188 H POC Glucose 197 H 200 H 03/11/20 03/12/20 03/12/20 21:24 04:31 08:16 RBC Hgb Hct RDW [place] % (Auto) Lymph # Seg Neuts % (Manual) Lymphocytes % (Manual) Lymphocytes # (Manual) ABG pO2 ABG HCO3 ABG Hemoglobin Sodium BUN 31 H Glucose 139 H POC Glucose 108 H 161 H 03/12/20 03/12/20 03/12/20 12:22 12:32 17:26 RBC Hgb Hct RDW [place] % (Auto) Lymph # Seg Neuts % (Manual) Lymphocytes % (Manual) Lymphocytes # (Manual) ABG pO2 ABG HCO3 ABG Hemoglobin Sodium BUN Glucose POC Glucose 134 H 125 H 220 H 03/12/20 03/13/20 03/13/20 22:04 07:46 11:53 RBC Hgb Hct RDW [place] % (Auto) Lymph # Seg Neuts % (Manual) Lymphocytes % (Manual) Lymphocytes # (Manual) ABG pO2 ABG HCO3 ABG Hemoglobin Sodium BUN Glucose POC Glucose 149 H 204 H 226 H 03/13/20 03/13/20 03/14/20 16:55 21:59 08:28 RBC Hgb Hct RDW [place] % (Auto) Lymph # Seg Neuts % (Manual) Lymphocytes % (Manual) Lymphocytes # (Manual) ABG pO2 ABG HCO3 ABG Hemoglobin Sodium BUN Glucose POC Glucose 151 H 196 H 171 H 03/14/20 03/14/20 17:11 21:29 RBC Hgb Hct RDW [place] % (Auto) Lymph # Seg Neuts % (Manual) Lymphocytes % (Manual) Lymphocytes # (Manual) ABG pO2 ABG HCO3 ABG Hemoglobin Sodium BUN Glucose POC Glucose 134 H 235 H
[2020-03-15] MEDS: INSULIN LISPRO 100 UNIT/ML VIAL 3 mL SUB-Q SCH ×4 (08:57→22:03)
[2020-03-15] MEDS: FUROSEMIDE 40 MG TAB PO SCH (09:00)
[2020-03-15] MEDS: FAMOTIDINE 20 MG TAB PO SCH (09:01)
[2020-03-15] MEDS: prednisoLONE ACETATE 1% OPHTH SUSP 5 ML OU SCH ×2 (09:01→21:50)
[2020-03-15] MEDS ORDERED: levoFLOXacin 750 MG TAB PO SCH (10:00)
[2020-03-15 10:01] LABS: Hematocrit 38.5 % (30.3-42.9); Hemoglobin 12.7 gm/dl (10.1-14.3); Mean Corpuscular HGB Conc 33 % (30-34); Mean Corpuscular Volume 92 fl (79-97); Platelet Count 254 K/mm3 (140-440); Red Blood Count 4.17 M/mm3 (3.65-5.03); Red Cell Distribution Width 16.1 % (13.2-15.2)
[2020-03-15 10:27] LABS: Alanine Aminotransferase 13 units/L (7-56); Albumin 3.8 g/dL (3.9-5); BUN/Creatinine Ratio 38; Blood Urea Nitrogen 30 mg/dL (7-17); Calcium 9.8 mg/dL (8.4-10.2); Hemolysis Index 14
[2020-03-15 11:00] LABS: Basophils % (Manual) 0 % (0.0-1.8); Eosinophils % (Manual) 0 % (0.0-4.3); Monocytes % (Manual) 0 % (0.0-7.3); Total Cells Counted 100
[2020-03-15 11:01] LABS: Anisocytosis Few; Ovalocytes Rare; Platelet Estimate Consistent w Auto; Poikilocytosis Few; Tear Drop Cells Rare
--- NOTE | 2020-03-15 14:38 | Progress Note ---
<MANIMODESTO H. - Last Filed: 03/15/20 14:39> Assessment and Plan - Patient Problems (1) COPD with acute exacerbation Current Visit: Yes Status: Acute Plan to address problem: -History of COPD uses home oxygen 2 L nasal cannula and asthma - On EMS arrival she was hypoxic and tachycardic was placed on a non rebreather with improvement of her SPO2 -Pulmonary consult, appreciate recommendations -Placed on continues BiPAP at emergency department and received Xopenex, Atrovent, IV magnesium -03/10 AB.3/44.2/121/26.6 on 30% FiO2 -IV Levaquin (03/12-03/15) -Atrovent, Xopenex, steroids started and added pulmicort and brovana -Pulmonary hygiene -Continuous SPO2 monitor -RT to treat and evaluate -SSI for steroid use -03/10 Hgb A1C: 4.9 (2) Hypertension Current Visit: Yes Status: Chronic Plan to address problem: -Hydralazine and lasix PO -IV hydralazine PRN -Blood pressure monitoring per protocol (3) DVT prophylaxis Current Visit: Yes Status: Acute Plan to address problem: -Lovenox subcu -SCDs while in bed -GI prophylaxis with Pepcid PO History Interval history: This is a 70-year-old female with hypertension, COPD on home oxygen 2L NC, asthma, former smoker (1/2 ppd x 51 years- quit 2 years ago) who presents on 03/10 with complaints of difficulty in breathing since the morning. S She states she has had a productive cough with yellow sputum for about a week prior to presentation. Upon arrival by EMS she was found to be hypoxic on her usual 2 L of oxygen via nasal cannula, tachypneic and tachycardic in the 130s and subsequently placed on a nonrebreather and given IM Solu-Medrol and her SPO2 improved to 100%. Work up in emergency department included a chest x-ray which showed COPD with no acute processes, unremarkable labs, and an ABG 7.3/44.2/121/26.6 on 30% FiO2. Patient voices safety concerns re daughter, CM working on placement as Pulmanory suggests SNF. PT/OT consulted for placement. -03/10: admit to [facility] for continuous BiPAP therapy however she was weaned off and was on nasal cannula over the night. -03/11: transferred to med/surg. used BiPAP overnight. IV lasix and ativan -03/12: states concerns about safety. CM was consulted 03/11 Hospitalist Physical - Constitutional Vitals: Temp Pulse Resp BP Pulse Ox 98.5 F 92 H 32 H 114/70 99 03/15/20 11:15 03/15/20 13:36 03/15/20 11:15 03/15/20 13:36 03/15/20 11:15 General appearance: Present: no acute distress, well-nourished - EENT Eyes: Present: PERRL ENT: hearing decreased - Neck Neck: Present: normal ROM - Respiratory Respiratory effort: normal, other (pursed lip breathing) Respiratory: bilateral: CTA - Cardiovascular Rhythm: regular Heart Sounds: Present: S1 & S2. Absent: systolic murmur, diastolic murmur - Extremities Extremities: no ischemia, pulses intact, pulses symmetrical, No edema, normal temperature, normal color, Full ROM Peripheral Pulses: within normal limits - Abdominal General gastrointestinal: soft, non-tender, non-distended, normal bowel sounds - Integumentary Integumentary: Present: clear, warm, dry - Psychiatric Psychiatric: cooperative - Neurologic Neurologic: no focal deficits, moves all extremities - Allied Health Allied health notes reviewed: nursing, social work, case management HEART Score - HEART Score EKG: Normal Age: > 65 Troponin: Troponin T < 0.010 ng/mL (0.00-0.029) 03/10/20 03:54 Troponin: < normal limit Results - Labs CBC & Chem 7: 03/15/20 09:33 03/15/20 09:33 Labs: Laboratory Last Values WBC 6.2 K/mm3 (4.5-11.0) 03/15/20 09:33 RBC 4.17 M/mm3 (3.65-5.03) 03/15/20 09:33 Hgb 12.7 gm/dl (10.1-14.3) 03/15/20 09:33 Hct 38.5 % (30.3-42.9) 03/15/20 09:33 MCV 92 fl (79-97) 03/15/20 09:33 MCH 30 pg (28-32) 03/15/20 09:33 MCHC 33 % (30-34) 03/15/20 09:33 RDW 16.1 % (13.2-15.2) H 03/15/20 09:33 Plt Count 254 K/mm3 (140-440) 03/15/20 09:33 Lymph % (Auto) 20.2 % (13.4-35.0) 03/10/20 03:54 [place] % (Auto) 12.8 % (0.0-7.3) H 03/10/20 03:54 Eos % (Auto) 1.1 % (0.0-4.3) 03/10/20 03:54 Baso % (Auto) 0.9 % (0.0-1.8) 03/10/20 03:54 Lymph # 1.1 K/mm3 (1.2-5.4) L 03/10/20 03:54 [place] # 0.7 K/mm3 (0.0-0.8) 03/10/20 03:54 Eos # 0.1 K/mm3 (0.0-0.4) 03/10/20 03:54 Baso # 0.0 K/mm3 (0.0-0.1) 03/10/20 03:54 Add Manual Diff Complete 03/15/20 09:33 Total Counted 100 03/15/20 09:33 Seg Neutrophils % 65.0 % (40.0-70.0) 03/10/20 03:54 Seg Neuts % (Manual) 89.0 % (40.0-70.0) H 03/15/20 09:33 Band Neutrophils % 0 % 03/15/20 09:33 Lymphocytes % (Manual) 8.0 % (13.4-35.0) L 03/15/20 09:33 Reactive Lymphs % (Man) 0 % 03/15/20 09:33 Monocytes % (Manual) 0 % (0.0-7.3) 03/15/20 09:33 Eosinophils % (Manual) 0 % (0.0-4.3) 03/15/20 09:33 Basophils % (Manual) 0 % (0.0-1.8) 03/15/20 09:33 Metamyelocytes % 3.0 % 03/15/20 09:33 Myelocytes % 0 % 03/15/20 09:33 Promyelocytes % 0 % 03/15/20 09:33 Blast Cells % 0 % 03/15/20 09:33 Nucleated RBC % Not Reportable 03/15/20 09:33 Seg Neutrophils # 3.6 K/mm3 (1.8-7.7) 03/10/20 03:54 Seg Neutrophils # Man 5.5 K/mm3 (1.8-7.7) 03/15/20 09:33 Band Neutrophils # 0.0 K/mm3 03/15/20 09:33 Lymphocytes # (Manual) 0.5 K/mm3 (1.2-5.4) L 03/15/20 09:33 Abs React Lymphs (Man) 0.0 K/mm3 03/15/20 09:33 Monocytes # (Manual) 0.0 K/mm3 (0.0-0.8) 03/15/20 09:33 Eosinophils # (Manual) 0.0 K/mm3 (0.0-0.4) 03/15/20 09:33 Basophils # (Manual) 0.0 K/mm3 (0.0-0.1) 03/15/20 09:33 Metamyelocytes # 0.2 K/mm3 03/15/20 09:33 Myelocytes # 0.0 K/mm3 03/15/20 09:33 Promyelocytes # 0.0 K/mm3 03/15/20 09:33 Blast Cells # 0.0 K/mm3 03/15/20 09:33 WBC Morphology Not Reportable 03/15/20 09:33 Hypersegmented Neuts Not Reportable 03/15/20 09:33 Hyposegmented Neuts Not Reportable 03/15/20 09:33 Hypogranular Neuts Not Reportable 03/15/20 09:33 Smudge Cells Not Reportable 03/15/20 09:33 Toxic Granulation Not Reportable 03/15/20 09:33 Toxic Vacuolation Not Reportable 03/15/20 09:33 Dohle Bodies Not Reportable 03/15/20 09:33 Pelger-Huet Anomaly Not Reportable 03/15/20 09:33 Nilam Rods Not Reportable 03/15/20 09:33 Platelet Estimate Consistent w auto 03/15/20 09:33 Clumped Platelets Not Reportable 03/15/20 09:33 Plt Clumps, EDTA Not Reportable 03/15/20 09:33 Large Platelets Not Reportable 03/15/20 09:33 Giant Platelets Not Reportable 03/15/20 09:33 Platelet Satelliting Not Reportable 03/15/20 09:33 Plt Morphology Comment Not Reportable 03/15/20 09:33 RBC Morphology Not Reportable 03/15/20 09:33 Dimorphic RBCs Not Reportable 03/15/20 09:33 Polychromasia Not Reportable 03/15/20 09:33 Hypochromasia Not Reportable 03/15/20 09:33 Poikilocytosis Few 03/15/20 09:33 Anisocytosis Few 03/15/20 09:33 Microcytosis Not Reportable 03/15/20 09:33 Macrocytosis Not Reportable 03/15/20 09:33 Spherocytes Not Reportable 03/15/20 09:33 Pappenheimer Bodies Not Reportable 03/15/20 09:33 Sickle Cells Not Reportable 03/15/20 09:33 Target Cells Not Reportable 03/15/20 09:33 Tear Drop Cells Rare 03/15/20 09:33 Ovalocytes Rare 03/15/20 09:33 Helmet Cells Not Reportable 03/15/20 09:33 [place] Bodies Not Reportable 03/15/20 09:33 Mcfarlan Rings Not Reportable 03/15/20 09:33 [place] Cells Not Reportable 03/15/20 09:33 Bite Cells Not Reportable 03/15/20 09:33 Crenated Cell Not Reportable 03/15/20 09:33 Elliptocytes Not Reportable 03/15/20 09:33 Acanthocytes (Spur) Not Reportable 03/15/20 09:33 Rouleaux Not Reportable 03/15/20 09:33 Hemoglobin C Crystals Not Reportable 03/15/20 09:33 Schistocytes Not Reportable 03/15/20 09:33 Malaria parasites Not Reportable 03/15/20 09:33 Raul Bodies Not Reportable 03/15/20 09:33 Hem Pathologist Commnt No 03/15/20 09:33 PT 13.4 Sec. (12.2-14.9) 03/10/20 03:54 INR 1.01 (0.87-1.13) 03/10/20 03:54 APTT 32.6 Sec. (24.2-36.6) 03/10/20 03:54 ABG pH 7.398 pH Units (7.350-7.450) 03/10/20 05:20 ABG pCO2 44.2 mm Hg 03/10/20 05:20 ABG pO2 121.0 mm Hg (80.0-90.0) H 03/10/20 05:20 ABG HCO3 26.6 mmol/L (20.0-26.0) H 03/10/20 05:20 ABG O2 Saturation 98.3 % (95.0-99.0) 03/10/20 05:20 ABG O2 Content 14.4 (0.0-44) 03/10/20 05:20 ABG Base Excess 1.5 mmol/L (-2.0-3.0) 03/10/20 05:20 ABG Hemoglobin 10.5 gm/dl (12.0-16.0) L 03/10/20 05:20 ABG Carboxyhemoglobin 1.5 % (0.0-5.0) 03/10/20 05:20 ABG Methemoglobin 0.5 % (0.0-1.5) 03/10/20 05:20 Oxyhemoglobin 96.3 % (95.0-99.0) 03/10/20 05:20 FiO2 30 % 03/10/20 05:20 Sodium 141 mmol/L (137-145) 03/15/20 09:33 Potassium 4.0 mmol/L (3.6-5.0) 03/15/20 09:33 Chloride 97.9 mmol/L (98-107) L 03/15/20 09:33 Carbon Dioxide 29 mmol/L (22-30) 03/15/20 09:33 Anion Gap 18 mmol/L 03/15/20 09:33 BUN 30 mg/dL (7-17) H 03/15/20 09:33 Creatinine 0.8 mg/dL (0.6-1.2) 03/15/20 09:33 Estimated GFR > 60 ml/min 03/15/20 09:33 BUN/Creatinine Ratio 38 % 03/15/20 09:33 Glucose 245 mg/dL (65-100) H 03/15/20 09:33 POC Glucose 130 (70-105) H 03/15/20 12:42 Hemoglobin A1c 4.9 % (4-6) 03/10/20 08:35 Calcium 9.8 mg/dL (8.4-10.2) 03/15/20 09:33 Total Bilirubin 0.20 mg/dL (0.1-1.2) 03/15/20 09:33 AST 12 units/L (5-40) 03/15/20 09:33 ALT 13 units/L (7-56) 03/15/20 09:33 Alkaline Phosphatase 55 units/L (35-129) 03/15/20 09:33 Troponin T < 0.010 ng/mL (0.00-0.029) 03/10/20 03:54 NT-Pro-B Natriuret Pep 170.1 pg/mL (0-900) 03/10/20 03:54 Total Protein 6.0 g/dL (6.3-8.2) L 03/15/20 09:33 Albumin 3.8 g/dL (3.9-5) L 03/15/20 09:33 Albumin/Globulin Ratio 1.7 % 03/15/20 09:33 Rebollar/IV: Voiding Method Bedside Commode IV Catheter Type [Right Upper INT / Saline Lock arm] IV Catheter Type [Right Hand] INT / Saline Lock Active Medications - Current Medications Current Medications: Generic Name Dose Route Start Last Admin Trade Name Freq PRN Reason Stop Dose Admin Acetaminophen 650 mg 03/10/20 07:59 03/13/20 18:19 Tylenol PO 650 mg Q6H PRN Administration Pain MILD(1-3)/Fever >100.5/RABAGO Alprazolam 0.25 mg 03/11/20 09:18 03/14/20 09:13 Xanax PO 0.25 mg Q8H PRN Administration Anxiety Arformoterol Tartrate 15 mcg 03/11/20 08:00 03/15/20 08:13 Brovana Nebu IH 15 mcg Q12HRT OLEG Administration Bisacodyl 10 mg 03/14/20 10:00 03/14/20 09:12 Dulcolax PO 10 mg QDAY PRN Administration Constipation Bisacodyl 10 mg 03/14/20 10:00 Dulcolax SD QDAY PRN Constipation Budesonide 0.5 mg 03/11/20 08:00 03/15/20 08:13 Pulmicort IH 0.5 mg Q12HRT OLEG Administration Enoxaparin Sodium 40 mg 03/10/20 22:00 03/14/20 21:21 Enoxaparin SUB-Q 40 mg QDAY@2200 OLEG Administration Famotidine 20 mg 03/11/20 10:00 03/15/20 09:01 Pepcid PO 20 mg DAILY OLEG Administration Furosemide 20 mg 03/13/20 10:00 03/15/20 09:00 Lasix PO 20 mg QDAY OLEG Administration Hydralazine HCl 10 mg 03/10/20 09:06 Apresoline IV Q4HR PRN Hypertension Hydralazine HCl 25 mg 03/11/20 14:00 03/15/20 13:36 Apresoline PO 25 mg Q8HR OLEG Administration Insulin Human Lispro 0 unit 03/10/20 11:30 03/15/20 12:59 Humalog SUB-Q Not Given ACHS [facility] Protocol Ipratropium [place] 0.5 mg 03/10/20 16:00 03/15/20 08:13 Atrovent IH 0.5 mg Q8HRT OLEG Administration Levalbuterol HCl 0.63 mg 03/10/20 08:07 03/12/20 13:12 Xopenex IH 0.63 mg Q8HRT PRN Administration Shortness Of Breath Methylprednisolone Sodium Succinate 40 mg 03/12/20 06:00 03/15/20 13:36 Solu-Medrol IV 40 mg Q8HR OLEG Administration Metoclopramide HCl 10 mg 03/10/20 07:59 Reglan IV Q6H PRN Nausea And Vomiting Oxycodone/Acetaminophen 1 tab 03/10/20 07:59 03/14/20 18:15 Percocet 5/325 PO 1 tab Q6H PRN Administration Pain, Moderate (4-6) Prednisolone Acetate 1 drops 03/14/20 10:00 03/15/20 09:01 Pred Forte 1% OU 1 drops BID OLEG Administration Sodium Chloride 10 ml 03/10/20 10:00 03/15/20 09:02 Sodium Chloride Flush Syringe 10 Ml IV 10 ml BID OLEG Administration Sodium Chloride 10 ml 03/10/20 07:59 Sodium Chloride Flush Syringe 10 Ml IV PRN PRN LINE FLUSH <SOPHIA CAMILO S - Last Filed: 03/16/20 06:11> Hospitalist Physical - Constitutional Vitals: Temp Pulse Resp BP Pulse Ox 98.5 F 73 16 130/67 100 03/15/20 21:51 03/16/20 05:23 03/15/20 21:51 03/16/20 05:23 03/16/20 04:45 HEART Score - HEART Score Troponin: Troponin T < 0.010 ng/mL (0.00-0.029) 03/10/20 03:54 Results - Labs CBC & Chem 7: 03/15/20 09:33 03/15/20 09:33 Labs: Laboratory Last Values WBC 6.2 K/mm3 (4.5-11.0) 03/15/20 09:33 RBC 4.17 M/mm3 (3.65-5.03) 03/15/20 09:33 Hgb 12.7 gm/dl (10.1-14.3) 03/15/20 09:33 Hct 38.5 % (30.3-42.9) 03/15/20 09:33 MCV 92 fl (79-97) 03/15/20 09:33 MCH 30 pg (28-32) 03/15/20 09:33 MCHC 33 % (30-34) 03/15/20 09:33 RDW 16.1 % (13.2-15.2) H 03/15/20 09:33 Plt Count 254 K/mm3 (140-440) 03/15/20 09:33 Lymph % (Auto) 20.2 % (13.4-35.0) 03/10/20 03:54 [place] % (Auto) 12.8 % (0.0-7.3) H 03/10/20 03:54 Eos % (Auto) 1.1 % (0.0-4.3) 03/10/20 03:54 Baso % (Auto) 0.9 % (0.0-1.8) 03/10/20 03:54 Lymph # 1.1 K/mm3 (1.2-5.4) L 03/10/20 03:54 [place] # 0.7 K/mm3 (0.0-0.8) 03/10/20 03:54 Eos # 0.1 K/mm3 (0.0-0.4) 03/10/20 03:54 Baso # 0.0 K/mm3 (0.0-0.1) 03/10/20 03:54 Add Manual Diff Complete 03/15/20 09:33 Total Counted 100 03/15/20 09:33 Seg Neutrophils % 65.0 % (40.0-70.0) 03/10/20 03:54 Seg Neuts % (Manual) 89.0 % (40.0-70.0) H 03/15/20 09:33 Band Neutrophils % 0 % 03/15/20 09:33 Lymphocytes % (Manual) 8.0 % (13.4-35.0) L 03/15/20 09:33 Reactive Lymphs % (Man) 0 % 03/15/20 09:33 Monocytes % (Manual) 0 % (0.0-7.3) 03/15/20 09:33 Eosinophils % (Manual) 0 % (0.0-4.3) 03/15/20 09:33 Basophils % (Manual) 0 % (0.0-1.8) 03/15/20 09:33 Metamyelocytes % 3.0 % 03/15/20 09:33 Myelocytes % 0 % 03/15/20 09:33 Promyelocytes % 0 % 03/15/20 09:33 Blast Cells % 0 % 03/15/20 09:33 Nucleated RBC % Not Reportable 03/15/20 09:33 Seg Neutrophils # 3.6 K/mm3 (1.8-7.7) 03/10/20 03:54 Seg Neutrophils # Man 5.5 K/mm3 (1.8-7.7) 03/15/20 09:33 Band Neutrophils # 0.0 K/mm3 03/15/20 09:33 Lymphocytes # (Manual) 0.5 K/mm3 (1.2-5.4) L 03/15/20 09:33 Abs React Lymphs (Man) 0.0 K/mm3 03/15/20 09:33 Monocytes # (Manual) 0.0 K/mm3 (0.0-0.8) 03/15/20 09:33 Eosinophils # (Manual) 0.0 K/mm3 (0.0-0.4) 03/15/20 09:33 Basophils # (Manual) 0.0 K/mm3 (0.0-0.1) 03/15/20 09:33 Metamyelocytes # 0.2 K/mm3 03/15/20 09:33 Myelocytes # 0.0 K/mm3 03/15/20 09:33 Promyelocytes # 0.0 K/mm3 03/15/20 09:33 Blast Cells # 0.0 K/mm3 03/15/20 09:33 WBC Morphology Not Reportable 03/15/20 09:33 Hypersegmented Neuts Not Reportable 03/15/20 09:33 Hyposegmented Neuts Not Reportable 03/15/20 09:33 Hypogranular Neuts Not Reportable 03/15/20 09:33 Smudge Cells Not Reportable 03/15/20 09:33 Toxic Granulation Not Reportable 03/15/20 09:33 Toxic Vacuolation Not Reportable 03/15/20 09:33 Dohle Bodies Not Reportable 03/15/20 09:33 Pelger-Huet Anomaly Not Reportable 03/15/20 09:33 Nilam Rods Not Reportable 03/15/20 09:33 Platelet Estimate Consistent w auto 03/15/20 09:33 Clumped Platelets Not Reportable 03/15/20 09:33 Plt Clumps, EDTA Not Reportable 03/15/20 09:33 Large Platelets Not Reportable 03/15/20 09:33 Giant Platelets Not Reportable 03/15/20 09:33 Platelet Satelliting Not Reportable 03/15/20 09:33 Plt Morphology Comment Not Reportable 03/15/20 09:33 RBC Morphology Not Reportable 03/15/20 09:33 Dimorphic RBCs Not Reportable 03/15/20 09:33 Polychromasia Not Reportable 03/15/20 09:33 Hypochromasia Not Reportable 03/15/20 09:33 Poikilocytosis Few 03/15/20 09:33 Anisocytosis Few 03/15/20 09:33 Microcytosis Not Reportable 03/15/20 09:33 Macrocytosis Not Reportable 03/15/20 09:33 Spherocytes Not Reportable 03/15/20 09:33 Pappenheimer Bodies Not Reportable 03/15/20 09:33 Sickle Cells Not Reportable 03/15/20 09:33 Target Cells Not Reportable 03/15/20 09:33 Tear Drop Cells Rare 03/15/20 09:33 Ovalocytes Rare 03/15/20 09:33 Helmet Cells Not Reportable 03/15/20 09:33 [place] Bodies Not Reportable 03/15/20 09:33 Mcfarlan Rings Not Reportable 03/15/20 09:33 [place] Cells Not Reportable 03/15/20 09:33 Bite Cells Not Reportable 03/15/20 09:33 Crenated Cell Not Reportable 03/15/20 09:33 Elliptocytes Not Reportable 03/15/20 09:33 Acanthocytes (Spur) Not Reportable 03/15/20 09:33 Rouleaux Not Reportable 03/15/20 09:33 Hemoglobin C Crystals Not Reportable 03/15/20 09:33 Schistocytes Not Reportable 03/15/20 09:33 Malaria parasites Not Reportable 03/15/20 09:33 Raul Bodies Not Reportable 03/15/20 09:33 Hem Pathologist Commnt No 03/15/20 09:33 PT 13.4 Sec. (12.2-14.9) 03/10/20 03:54 INR 1.01 (0.87-1.13) 03/10/20 03:54 APTT 32.6 Sec. (24.2-36.6) 03/10/20 03:54 ABG pH 7.398 pH Units (7.350-7.450) 03/10/20 05:20 ABG pCO2 44.2 mm Hg 03/10/20 05:20 ABG pO2 121.0 mm Hg (80.0-90.0) H 03/10/20 05:20 ABG HCO3 26.6 mmol/L (20.0-26.0) H 03/10/20 05:20 ABG O2 Saturation 98.3 % (95.0-99.0) 03/10/20 05:20 ABG O2 Content 14.4 (0.0-44) 03/10/20 05:20 ABG Base Excess 1.5 mmol/L (-2.0-3.0) 03/10/20 05:20 ABG Hemoglobin 10.5 gm/dl (12.0-16.0) L 03/10/20 05:20 ABG Carboxyhemoglobin 1.5 % (0.0-5.0) 03/10/20 05:20 ABG Methemoglobin 0.5 % (0.0-1.5) 03/10/20 05:20 Oxyhemoglobin 96.3 % (95.0-99.0) 03/10/20 05:20 FiO2 30 % 03/10/20 05:20 Sodium 141 mmol/L (137-145) 03/15/20 09:33 Potassium 4.0 mmol/L (3.6-5.0) 03/15/20 09:33 Chloride 97.9 mmol/L (98-107) L 03/15/20 09:33 Carbon Dioxide 29 mmol/L (22-30) 03/15/20 09:33 Anion Gap 18 mmol/L 03/15/20 09:33 BUN 30 mg/dL (7-17) H 03/15/20 09:33 Creatinine 0.8 mg/dL (0.6-1.2) 03/15/20 09:33 Estimated GFR > 60 ml/min 03/15/20 09:33 BUN/Creatinine Ratio 38 % 03/15/20 09:33 Glucose 245 mg/dL (65-100) H 03/15/20 09:33 POC Glucose 123 (70-105) H 03/15/20 22:10 Hemoglobin A1c 4.9 % (4-6) 03/10/20 08:35 Calcium 9.8 mg/dL (8.4-10.2) 03/15/20 09:33 Total Bilirubin 0.20 mg/dL (0.1-1.2) 03/15/20 09:33 AST 12 units/L (5-40) 03/15/20 09:33 ALT 13 units/L (7-56) 03/15/20 09:33 Alkaline Phosphatase 55 units/L (35-129) 03/15/20 09:33 Troponin T < 0.010 ng/mL (0.00-0.029) 03/10/20 03:54 NT-Pro-B Natriuret Pep 170.1 pg/mL (0-900) 03/10/20 03:54 Total Protein 6.0 g/dL (6.3-8.2) L 03/15/20 09:33 Albumin 3.8 g/dL (3.9-5) L 03/15/20 09:33 Albumin/Globulin Ratio 1.7 % 03/15/20 09:33 Rebollar/IV: Voiding Method Bedside Commode IV Catheter Type [Right Upper INT / Saline Lock arm] IV Catheter Type [Right Hand] INT / Saline Lock Active Medications - Current Medications Current Medications: Generic Name Dose Route Start Last Admin Trade Name Freq PRN Reason Stop Dose Admin Acetaminophen 650 mg 03/10/20 07:59 03/13/20 18:19 Tylenol PO 650 mg Q6H PRN Administration Pain MILD(1-3)/Fever >100.5/RABAGO Alprazolam 0.25 mg 03/11/20 09:18 03/14/20 09:13 Xanax PO 0.25 mg Q8H PRN Administration Anxiety Arformoterol Tartrate 15 mcg 03/11/20 08:00 03/15/20 19:55 Brovana Nebu IH 15 mcg Q12HRT OLEG Administration Bisacodyl 10 mg 03/14/20 10:00 03/14/20 09:12 Dulcolax PO 10 mg QDAY PRN Administration Constipation Bisacodyl 10 mg 03/14/20 10:00 Dulcolax SD QDAY PRN Constipation Budesonide 0.5 mg 03/11/20 08:00 03/15/20 19:56 Pulmicort IH 0.5 mg Q12HRT OLEG Administration Enoxaparin Sodium 40 mg 03/10/20 22:00 03/15/20 21:49 Enoxaparin SUB-Q 40 mg QDAY@2200 OLEG Administration Famotidine 20 mg 03/11/20 10:00 03/15/20 09:01 Pepcid PO 20 mg DAILY OLEG Administration Furosemide 20 mg 03/13/20 10:00 03/15/20 09:00 Lasix PO 20 mg QDAY OLEG Administration Hydralazine HCl 10 mg 03/10/20 09:06 Apresoline IV Q4HR PRN Hypertension Hydralazine HCl 25 mg 03/11/20 14:00 03/16/20 05:23 Apresoline PO 25 mg Q8HR OLEG Administration Insulin Human Lispro 0 unit 03/10/20 11:30 03/15/20 22:03 Humalog SUB-Q Not Given ACHS OLEG Protocol Ipratropium [place] 0.5 mg 03/10/20 16:00 03/16/20 04:48 Atrovent IH Not Given Q8HRT OLEG Levalbuterol HCl 0.63 mg 03/10/20 08:07 03/12/20 13:12 Xopenex IH 0.63 mg Q8HRT PRN Administration Shortness Of Breath Methylprednisolone Sodium Succinate 40 mg 03/12/20 06:00 03/16/20 05:24 Solu-Medrol IV 40 mg Q8HR OLEG Administration Metoclopramide HCl 10 mg 03/10/20 07:59 Reglan IV Q6H PRN Nausea And Vomiting Oxycodone/Acetaminophen 1 tab 03/10/20 07:59 03/14/20 18:15 Percocet 5/325 PO 1 tab Q6H PRN Administration Pain, Moderate (4-6) Prednisolone Acetate 1 drops 03/14/20 10:00 03/15/20 21:50 Pred Forte 1% OU 1 drops BID OLEG Administration Sodium Chloride 10 ml 03/10/20 10:00 03/15/20 21:55 Sodium Chloride Flush Syringe 10 Ml IV 10 ml BID OLEG Administration Sodium Chloride 10 ml 03/10/20 07:59 Sodium Chloride Flush Syringe 10 Ml IV PRN PRN LINE FLUSH - Addendum Date: 03/15/20 Note: Needs SNF/Personal skilled nursing--Refer to case management
[2020-03-15] MEDS: ENOXAPARIN 40 MG/0.4 ML INJ SUB-Q SCH (21:49)
[2020-03-16] MEDS: IPRATROPIUM 0.02% NEBU 2.5 ML IH SCH ×4 (04:48→21:47)
[2020-03-16] MEDS: hydrALAZINE 25 MG TAB PO SCH ×3 (05:23→22:14)
[2020-03-16] MEDS: methylPREDNISolone Sod Succinate 40 MG/1 ML INJ IV SCH (05:24)
[2020-03-16] MEDS: ARFORMOTEROL 15 MCG/2 ML NEBU IH SCH ×2 (07:29→21:48)
[2020-03-16] MEDS: BUDESONIDE 0.5 MG/2 ML NEBU IH SCH ×2 (07:29→21:47)
--- NOTE | 2020-03-16 09:51 | Progress Note ---
Assessment and Plan 70 y/o female with acute exacerbation of COPD 1. Will change to Prednisone 60 daily 2. Continue BID Pulmicort and Brovana, resume home regimen at discharge. 3. Continue supplemental oxygen, per report, patient is on this at home 4. Patient continues to refuse nighttime PPV. Maybe her machine was taken from her for lack of use/compliance? Appreciate RT continuing to document. Will continue the order. 5. Given degree of COPD, patient likely would benefit from PPV at night, however she continues to refuse it. This is likely adding to persistent dyspnea. My partner over the weekend suggested SNF, no objection to this. 6. Needs better blood pressure control. Ok with increasing lasix but likely will need a second agent. No objection to discharge Subjective Date of service: 03/16/20 Principal diagnosis: COPD exac. Interval history: Reviewed CM and Nurse note from last night. Patient remains on 3 liters NC with good sats. Still on Solmedrol 40 Objective Vital Signs - 12hr 03/15/20 03/15/20 03/15/20 21:51 21:52 22:00 Temperature 98.5 F Pulse Rate 88 90 Pulse Rate [ 90 From Monitor] Pulse Rate [ Throughout] Respiratory 16 Rate Respiratory Rate [ Throughout] Blood Pressure 155/83 155/86 Blood Pressure [Left] O2 Sat by Pulse 100 96 Oximetry 03/16/20 03/16/20 03/16/20 04:45 05:21 05:23 Temperature Pulse Rate 71 73 73 Pulse Rate [ From Monitor] Pulse Rate [ Throughout] Respiratory Rate Respiratory Rate [ Throughout] Blood Pressure 130/67 Blood Pressure 130/67 [Left] O2 Sat by Pulse 100 Oximetry 03/16/20 07:31 Temperature Pulse Rate Pulse Rate [ From Monitor] Pulse Rate [ 94 H Throughout] Respiratory Rate Respiratory 16 Rate [ Throughout] Blood Pressure Blood Pressure [Left] O2 Sat by Pulse Oximetry Constitutional: no acute distress, alert Eyes: non-icteric ENT: oropharynx moist Neck: supple Effort: mildly labored Ascultation: Bilateral: diminished breath sounds, wheezes Percussion: Bilateral: not dull Tactile fremitus: Bilateral: normal Cardiovascular: regular rate and rhythm Gastrointestinal: normoactive bowel sounds, soft, non-tender, non-distended Extremities: no cyanosis, no edema, pink and warm Neurologic: normal mental status, non-focal exam Psychiatric: mood appropriate, affect normal CBC and BMP: 03/15/20 09:33 03/15/20 09:33 ABG, PT/INR, D-dimer: ABG ABG pH 7.398 pH Units (7.350-7.450) 03/10/20 05:20 ABG pCO2 44.2 mm Hg 03/10/20 05:20 ABG pO2 121.0 mm Hg (80.0-90.0) H 03/10/20 05:20 ABG O2 Saturation 98.3 % (95.0-99.0) 03/10/20 05:20 PT/INR, D-dimer PT 13.4 Sec. (12.2-14.9) 03/10/20 03:54 INR 1.01 (0.87-1.13) 03/10/20 03:54 Abnormal lab findings: Abnormal Labs 03/10/20 03/10/20 03/10/20 03:54 03:54 05:20 RBC Hgb Hct RDW 16.5 H Borden % (Auto) 12.8 H Lymph # 1.1 L Seg Neuts % (Manual) Lymphocytes % (Manual) Lymphocytes # (Manual) ABG pO2 121.0 H ABG HCO3 26.6 H ABG Hemoglobin 10.5 L Sodium 146 H Chloride BUN Glucose 101 H POC Glucose Total Protein Albumin 03/10/20 03/10/20 03/11/20 09:02 20:08 05:05 RBC 3.27 L Hgb 9.9 L Hct 30.1 L RDW 16.1 H Borden % (Auto) Lymph # Seg Neuts % (Manual) 79.0 H Lymphocytes % (Manual) 10.0 L Lymphocytes # (Manual) 0.6 L ABG pO2 ABG HCO3 ABG Hemoglobin Sodium Chloride BUN Glucose POC Glucose 153 H 198 H Total Protein Albumin 03/11/20 03/11/20 03/11/20 05:05 13:16 16:35 RBC Hgb Hct RDW Borden % (Auto) Lymph # Seg Neuts % (Manual) Lymphocytes % (Manual) Lymphocytes # (Manual) ABG pO2 ABG HCO3 ABG Hemoglobin Sodium Chloride BUN 18 H Glucose 188 H POC Glucose 197 H 200 H Total Protein Albumin 03/11/20 03/12/20 03/12/20 21:24 04:31 08:16 RBC Hgb Hct RDW Borden % (Auto) Lymph # Seg Neuts % (Manual) Lymphocytes % (Manual) Lymphocytes # (Manual) ABG pO2 ABG HCO3 ABG Hemoglobin Sodium Chloride BUN 31 H Glucose 139 H POC Glucose 108 H 161 H Total Protein Albumin 03/12/20 03/12/20 03/12/20 12:22 12:32 17:26 RBC Hgb Hct RDW Borden % (Auto) Lymph # Seg Neuts % (Manual) Lymphocytes % (Manual) Lymphocytes # (Manual) ABG pO2 ABG HCO3 ABG Hemoglobin Sodium Chloride BUN Glucose POC Glucose 134 H 125 H 220 H Total Protein Albumin 03/12/20 03/13/20 03/13/20 22:04 07:46 11:53 RBC Hgb Hct RDW Borden % (Auto) Lymph # Seg Neuts % (Manual) Lymphocytes % (Manual) Lymphocytes # (Manual) ABG pO2 ABG HCO3 ABG Hemoglobin Sodium Chloride BUN Glucose POC Glucose 149 H 204 H 226 H Total Protein Albumin 03/13/20 03/13/20 03/14/20 16:55 21:59 08:28 RBC Hgb Hct RDW B[place] % (Auto) Lymph # Seg Neuts % (Manual) Lymphocytes % (Manual) Lymphocytes # (Manual) ABG pO2 ABG HCO3 ABG Hemoglobin Sodium Chloride BUN Glucose POC Glucose 151 H 196 H 171 H Total Protein Albumin 03/14/20 03/14/20 03/15/20 17:11 21:29 08:18 RBC Hgb Hct RDW Borden % (Auto) Lymph # Seg Neuts % (Manual) Lymphocytes % (Manual) Lymphocytes # (Manual) ABG pO2 ABG HCO3 ABG Hemoglobin Sodium Chloride BUN Glucose POC Glucose 134 H 235 H 153 H Total Protein Albumin 03/15/20 03/15/20 03/15/20 09:33 09:33 12:42 RBC Hgb Hct RDW 16.1 H Borden % (Auto) Lymph # Seg Neuts % (Manual) 89.0 H Lymphocytes % (Manual) 8.0 L Lymphocytes # (Manual) 0.5 L ABG pO2 ABG HCO3 ABG Hemoglobin Sodium Chloride 97.9 L BUN 30 H Glucose 245 H POC Glucose 130 H Total Protein 6.0 L Albumin 3.8 L 03/15/20 03/15/20 17:33 22:10 RBC Hgb Hct RDW Borden % (Auto) Lymph # Seg Neuts % (Manual) Lymphocytes % (Manual) Lymphocytes # (Manual) ABG pO2 ABG HCO3 ABG Hemoglobin Sodium Chloride BUN Glucose POC Glucose 214 H 123 H Total Protein Albumin
[2020-03-16] MEDS: FUROSEMIDE 40 MG TAB PO SCH (10:08)
[2020-03-16] MEDS: prednisoLONE ACETATE 1% OPHTH SUSP 5 ML OU SCH ×2 (10:08→22:15)
[2020-03-16] MEDS: FAMOTIDINE 20 MG TAB PO SCH (10:08)
[2020-03-16] MEDS: INSULIN LISPRO 100 UNIT/ML VIAL 3 mL SUB-Q SCH ×4 (10:10→22:14)
[2020-03-16] MEDS ORDERED: methylPREDNISolone Sod Succinate 40 MG/1 ML INJ IV NR (11:00)
--- NOTE | 2020-03-16 11:23 | Consultation ---
History of Present Illness - Reason for Consult Consult date: 03/16/20 Reason for consult: MHE Requesting physician: HERNÁN YO - Chief Complaint Chief complaint: SOB - History of Present Psychiatric Illness Per ED Provider: 69-year-old female the past medical history of hypertension and COPD currently on 3 L home oxygen therapy presents to the hospital with respiratory distress. Patient woke up with shortness of breath and was found hypoxic by EMS while on her 3 L nasal cannula at home. Patient also had tachypnea and tachycardic in the 130's. She received IM Solu-Medrol in route and was placed on nonrebreather with improvement in O2 saturation of 100%. Pt has a cough productive of yellow sputum. Patient denies chest pain, fever, COVID exposure. She also denies history of cardiac disease, current smoking, or previous history of intubations. Patient does not have any previous record in [employer] for review PSYCH HPI Patient is a 70-year-old retired -[place] female with no significant past psychiatric history who has past medical history of COPD admitted to the hospital from nursing facility for COPD exacerbation. Patient reports self-awareness and irritation to being at [facility] for COPD flareups, patient asked why there was a consult placed for mental health evaluation because she knew she is not crazy, could be because she was acting up when she had a conversation with her daughter on the phone and when her daughter acts up she also acts up in response. Patient currently identified year, month, day and current president. Patient was currently able to tell her that time using an analog wall clock that was placed in the room. Patient reports she has kids most of whom are living in different places, she endorses appetite varies but sleeps good no auditory or visual hallucination says she has not got that far yet and giggled. Patient endorses a good mood states she also feels clean because she got a wash today and endorses intermitent anxiety. Patient denies panic attacks, recurrent nightmares or flashbacks. Patient denies symptoms suggestive of OCD or PTSD. Patient denies hallucinations, paranoia, thought interference and no features suggestive of hypomania or ok. She completely denies suicidal or homicidal thoughts. PAST PSYCHIATRIC HISTORY Diagnoses: none reported Suicide attempts or Self-harm behavior: none reported Prior psychiatric hospitalizations: none reported Substance Abuse history: none reported Previous psychiatric medications tried: none reported Outpatient treatment: none reported PAST MEDICAL HISTORY: COPD Family Psychiatric History: None reported or documented SOCIAL HISTORY Marital Status: Living Arrangements: assisted Employment Status: retired Access to guns/weapons: none reported Education: High school History of Abuse: Verbal Legal History: none reported REVIEW OF SYSTEMS Constitutional: Negative for weight loss ENT: Negative for stridor Respiratory: Negative for cough or hemoptysis All other systems reviewed and are negative MENTAL STATUS EXAMINATION General Appearance and Behavior: Age appropriate, good hygiene, wearing appropriate clothes, lying in bed, good eye contact, cooperativepolite/irritable with questioning. Cooperation: Participating/engaged Psychomotor Behavior: unremarkable and within normal limits Mood: Good Affect and affective range: good Thought Process: Fluent/Logical Thought Content: Within reality Speech: Normal volume, Regular rate and rhythm Suicidal Ideation: Denies SI Homicidal Ideation: Denies HI Impulse Control: Unimpaired Insight and Judgment: Normal insight and judgment Memory: Normal Attention: Normal Orientation: Alert, oriented RECOMMENDATIONS Assessment and Plan - Psychiatric problem (1) Behavior concern in adult Current Visit: Yes Status: Acute MEDICATIONS: Risks, benefits and alternatives of medications discussed with the patient, questions answered and consent obtained from patient. PSYCHOTHERAPY: Supportive psychotherapy provided MEDICAL: Per primary team DELIRIUM PRECAUTIONS: Please re-orient patient frequently, keep lights on during the day, and minimize benzodiazepines and opiates as these medications could worsen patient's confusion. COMPLIANCE AUDITOR: DISPOSITION: Per primary team; no indication for acute inpatient psychiatric hospitalization at this time LEGAL STATUS: Voluntary FOLLOW-UP: Will sign off Thank you for the consult. Please contact with any questions and/or concerns. Medications and Allergies Allergies Allergy/AdvReac Type Severity Reaction Status Date / Time albuterol Allergy Unknown Verified 03/10/20 03:40 Home Medications Medication Instructions Recorded Confirmed Last Taken Type No Known Home Medications [No 03/11/20 03/11/20 Unknown History Reported Home Medications] Active Meds: Active Medications Acetaminophen (Tylenol) 650 mg PO Q6H PRN PRN Reason: Pain MILD(1-3)/Fever >100.5/RABAGO Last Admin: 03/13/20 18:19 Dose: 650 mg Documented by: Alprazolam (Xanax) 0.25 mg PO Q8H PRN PRN Reason: Anxiety Last Admin: 08/23/20 09:13 Dose: 0.25 mg Documented by: Arformoterol Tartrate (Brovana Nebu) 15 mcg IH Q12HRT [facility] Last Admin: 03/16/20 07:29 Dose: 15 mcg Documented by: Bisacodyl (Dulcolax) 10 mg PO QDAY PRN PRN Reason: Constipation Last Admin: 03/14/20 09:12 Dose: 10 mg Documented by: Bisacodyl (Dulcolax) 10 mg PA QDAY PRN PRN Reason: Constipation Budesonide (Pulmicort) 0.5 mg IH Q12HRT [facility] Last Admin: 03/16/20 07:29 Dose: 0.5 mg Documented by: Enoxaparin Sodium (Enoxaparin) 40 mg SUB-Q QDAY@2200 [facility] Last Admin: 03/15/20 21:49 Dose: 40 mg Documented by: Famotidine (Pepcid) 20 mg PO DAILY [facility] Last Admin: 03/16/20 10:08 Dose: 20 mg Documented by: Furosemide (Lasix) 20 mg PO QDAY [facility] Last Admin: 03/16/20 10:08 Dose: 20 mg Documented by: Hydralazine HCl (Apresoline) 10 mg IV Q4HR PRN PRN Reason: Hypertension Hydralazine HCl (Apresoline) 25 mg PO Q8HR [facility] Last Admin: 03/16/20 05:23 Dose: 25 mg Documented by: Insulin Human Lispro (Humalog) 0 unit SUB-Q [facility]; Protocol Last Admin: 03/16/20 10:10 Dose: 4 unit Documented by: Ipratropium Ophelia (Atrovent) 0.5 mg IH TIDRT [facility] Levalbuterol HCl (Xopenex) 0.63 mg IH Q8HRT PRN PRN Reason: Shortness Of Breath Last Admin: 03/12/20 13:12 Dose: 0.63 mg Documented by: Methylprednisolone Sodium Succinate (Solu-Medrol) 20 mg IV ONCE NR Stop: 03/16/20 12:30 Metoclopramide HCl (Reglan) 10 mg IV Q6H PRN PRN Reason: Nausea And Vomiting Oxycodone/Acetaminophen (Percocet 5/325) 1 tab PO Q6H PRN PRN Reason: Pain, Moderate (4-6) Last Admin: 03/14/20 18:15 Dose: 1 tab Documented by: Prednisolone Acetate (Pred Forte 1%) 1 drops OU BID OLEG Last Admin: 03/16/20 10:08 Dose: 1 drops Documented by: Prednisone (Deltasone) 60 mg PO QDAY OLEG Sodium Chloride (Sodium Chloride Flush Syringe 10 Ml) 10 ml IV BID OLEG Last Admin: 03/16/20 10:09 Dose: 10 ml Documented by: Sodium Chloride (Sodium Chloride Flush Syringe 10 Ml) 10 ml IV PRN PRN PRN Reason: LINE FLUSH Mental Status Exam - Vital signs Last Vital Signs Temp 98.5 F 03/15/20 21:51 Pulse 94 H 03/16/20 07:31 Resp 16 03/16/20 07:31 BP 152/89 03/16/20 10:01 Pulse Ox 95 03/16/20 10:54 Results Result Diagrams: 03/15/20 09:33 03/15/20 09:33 Abnormal lab results 03/15/20 03/15/20 03/15/20 Range/Units 08:18 12:42 17:33 POC Glucose 153 H 130 H 214 H (70-105) 03/15/20 03/16/20 Range/Units 22:10 10:20 POC Glucose 123 H 255 H (70-105) All other labs normal. Assessment and Plan - Psychiatric problem (1) Behavior concern in adult Current Visit: Yes Status: Acute
--- NOTE | 2020-03-16 15:44 | Discharge Summary ---
Providers - Providers Date of Admission: 03/12/20 08:35 Date of discharge: 03/16/20 Attending physician: HERNÁN YO 03/10/20 07:59 Consult to Physician [CONS] Routine Comment: Consulting Provider: EMA SHAH Physician Instructions: Reason For Exam: Acute on Chronic Respiratory Failure, COPD excerb 03/10/20 08:03 Consult to Case Management [CONS] Routine Services Needed at Discharge: Piano Assembler Notified:: cm notified 03/15/20 07:49 Physical Therapy Evaluation and Treat [CONS] Routine Comment: Reason For Exam: evaluation for placement 03/15/20 11:55 Occupational Therapy Evaluate and Treat [CONS] Routine Comment: Reason For Exam: for placement 03/16/20 06:12 Consult to Case Management [CONS] Routine Services Needed at Discharge: Home Health Services Notified:: CORNEL Comment:: placement SNF/Personal prison Primary care physician: BIN TRIPPER OPERATOR Hospitalization Condition: Stable Hospital course: This is a 70-year-old female with hypertension, COPD on home oxygen 2L NC, asthma, former smoker (1/2 ppd x 51 years- quit 2 years ago) who presents on 03/10 with complaints of difficulty in breathing since the morning. S She states she has had a productive cough with yellow sputum for about a week prior to presentation. Upon arrival by EMS she was found to be hypoxic on her usual 2 L of oxygen via nasal cannula, tachypneic and tachycardic in the 130s and subsequently placed on a nonrebreather and given IM Solu-Medrol and her SPO2 improved to 100%. Work up in emergency department included a chest x-ray which showed COPD with no acute processes, unremarkable labs, and an ABG 7.3/44.2/121/26.6 on 30% FiO2. She was also started on IV Levaquin and steroids. On 03/11 she was transferred to [facility] with the BiPAP use overnight and was given IV Lasix. On 03/12 patient voiced concerns about safety and was consulted for placement needs. Over the weekend pulmonary suggested SNF placement. However patient requested to be placed back into her personal prison. Psych evaluation was obtained because patient was having visual hallucinations however psych has does not recommend inpatient hospitalization at this time. On 03/16 for COVID PCR was negative. She will be discharged to a personal prison for safety concerns and will continue her pulmonary regimen. She will need to follow-up with her primary care physician and pulmonology within 1 to 2 weeks of discharge. She will be discharged with a p.o. steroid taper. Disposition: DC-30 STILL A PATIENT Core Measure Documentation - Palliative Care Palliative Care/ Comfort Measures: Not Applicable - Core Measures Any of the following diagnoses?: none Exam - Constitutional Vitals: Temp Pulse Resp BP Pulse Ox 98.9 F 88 16 143/68 100 03/16/20 11:15 03/16/20 13:53 03/16/20 13:17 03/16/20 13:53 03/16/20 11:15 General appearance: Present: no acute distress - EENT Eyes: Present: PERRL, EOM intact ENT: hearing intact - Neck Neck: Present: normal ROM - Respiratory Respiratory effort: normal Respiratory: bilateral: CTA - Cardiovascular Rhythm: regular Heart Sounds: Present: S1 & S2. Absent: systolic murmur, diastolic murmur - Extremities Extremities: no ischemia, pulses intact, pulses symmetrical, No edema, normal temperature, normal color, Full ROM Peripheral Pulses: within normal limits - Abdominal General gastrointestinal: Present: soft, non-tender, non-distended, normal bowel sounds - Integumentary Integumentary: Present: clear, warm, dry - Musculoskeletal Musculoskeletal: strength equal bilaterally - Psychiatric Psychiatric: cooperative - Neurologic Neurologic: CNII-XII intact, no focal deficits, moves all extremities - Allied Health Allied health notes reviewed: nursing, social work, case management Plan Activity: advance as tolerated Diet: regular Additional Instructions: Please report to the nearest emergency department or contact your primary care physician if you experience worsening symptoms. Please follow-up with your primary care physician and billet assembler within 1 to 2 weeks of discharge. He will be discharged with a prednisone taper. Prednisone 60 mg PO daily for 3 days, prednisone 40 mg PO daily for 3 days, prednisone 20 mg PO daily for 3 days, prednisone 10 mg PO daily for 3 days. Follow up with: GINGER MENA MD [Primary Care Provider] - 3-5 Days CHELLY AGUDELO MD [Staff Physician] - 7 Days Prescriptions: Arformoterol Nebu [Brovana Nebu] 15 mcg IH Q12HRT #60 vial predniSONE [Deltasone] 60 mg PO QDAY 3 Days #90 tablet Furosemide [Lasix TAB] 20 mg PO QDAY #30 tablet prednisoLONE ACETATE 1% [Pred Forte 1%] 1 drops OU BID #1 bottle Budesonide [Pulmicort Respules] 0.5 mg IH Q12HRT #60 nebu ALPRAZolam [Xanax TAB] 0.25 mg PO Q8H PRN #7 tablet PRN Reason: Anxiety Levalbuterol [Xopenex] 0.63 mg IH Q8HRT PRN #90 nebu PRN Reason: Shortness Of Breath Ipratropium [Atrovent NEB] 0.5 mg IH TIDRT #60 nebu
--- NOTE | 2020-03-16 19:11 | Progress Note ---
Hospitalist Physical - Constitutional Vitals: Temp Pulse Resp BP Pulse Ox 98.9 F 93 H 18 143/75 99 03/16/20 15:30 03/16/20 15:30 03/16/20 15:30 03/16/20 15:30 03/16/20 15:30 General appearance: Present: no acute distress HEART Score - HEART Score EKG: Normal Age: > 65 Troponin: Troponin T < 0.010 ng/mL (0.00-0.029) 03/10/20 03:54 Troponin: < normal limit Results - Labs CBC & Chem 7: 03/15/20 09:33 03/15/20 09:33 Labs: Laboratory Last Values WBC 6.2 K/mm3 (4.5-11.0) 03/15/20 09:33 RBC 4.17 M/mm3 (3.65-5.03) 03/15/20 09:33 Hgb 12.7 gm/dl (10.1-14.3) 03/15/20 09:33 Hct 38.5 % (30.3-42.9) 03/15/20 09:33 MCV 92 fl (79-97) 03/15/20 09:33 MCH 30 pg (28-32) 03/15/20 09:33 MCHC 33 % (30-34) 03/15/20 09:33 RDW 16.1 % (13.2-15.2) H 03/15/20 09:33 Plt Count 254 K/mm3 (140-440) 03/15/20 09:33 Lymph % (Auto) 20.2 % (13.4-35.0) 03/10/20 03:54 [place] % (Auto) 12.8 % (0.0-7.3) H 03/10/20 03:54 Eos % (Auto) 1.1 % (0.0-4.3) 03/10/20 03:54 Baso % (Auto) 0.9 % (0.0-1.8) 03/10/20 03:54 Lymph # 1.1 K/mm3 (1.2-5.4) L 03/10/20 03:54 [place] # 0.7 K/mm3 (0.0-0.8) 03/10/20 03:54 Eos # 0.1 K/mm3 (0.0-0.4) 03/10/20 03:54 Baso # 0.0 K/mm3 (0.0-0.1) 03/10/20 03:54 Add Manual Diff Complete 03/15/20 09:33 Total Counted 100 03/15/20 09:33 Seg Neutrophils % 65.0 % (40.0-70.0) 03/10/20 03:54 Seg Neuts % (Manual) 89.0 % (40.0-70.0) H 03/15/20 09:33 Band Neutrophils % 0 % 03/15/20 09:33 Lymphocytes % (Manual) 8.0 % (13.4-35.0) L 03/15/20 09:33 Reactive Lymphs % (Man) 0 % 03/15/20 09:33 Monocytes % (Manual) 0 % (0.0-7.3) 03/15/20 09:33 Eosinophils % (Manual) 0 % (0.0-4.3) 03/15/20 09:33 Basophils % (Manual) 0 % (0.0-1.8) 03/15/20 09:33 Metamyelocytes % 3.0 % 03/15/20 09:33 Myelocytes % 0 % 03/15/20 09:33 Promyelocytes % 0 % 03/15/20 09:33 Blast Cells % 0 % 03/15/20 09:33 Nucleated RBC % Not Reportable 03/15/20 09:33 Seg Neutrophils # 3.6 K/mm3 (1.8-7.7) 03/10/20 03:54 Seg Neutrophils # Man 5.5 K/mm3 (1.8-7.7) 03/15/20 09:33 Band Neutrophils # 0.0 K/mm3 03/15/20 09:33 Lymphocytes # (Manual) 0.5 K/mm3 (1.2-5.4) L 03/15/20 09:33 Abs React Lymphs (Man) 0.0 K/mm3 03/15/20 09:33 Monocytes # (Manual) 0.0 K/mm3 (0.0-0.8) 03/15/20 09:33 Eosinophils # (Manual) 0.0 K/mm3 (0.0-0.4) 03/15/20 09:33 Basophils # (Manual) 0.0 K/mm3 (0.0-0.1) 03/15/20 09:33 Metamyelocytes # 0.2 K/mm3 03/15/20 09:33 Myelocytes # 0.0 K/mm3 03/15/20 09:33 Promyelocytes # 0.0 K/mm3 03/15/20 09:33 Blast Cells # 0.0 K/mm3 03/15/20 09:33 WBC Morphology Not Reportable 03/15/20 09:33 Hypersegmented Neuts Not Reportable 03/15/20 09:33 Hyposegmented Neuts Not Reportable 03/15/20 09:33 Hypogranular Neuts Not Reportable 03/15/20 09:33 Smudge Cells Not Reportable 03/15/20 09:33 Toxic Granulation Not Reportable 03/15/20 09:33 Toxic Vacuolation Not Reportable 03/15/20 09:33 Dohle Bodies Not Reportable 03/15/20 09:33 Pelger-Huet Anomaly Not Reportable 03/15/20 09:33 Nilam Rods Not Reportable 03/15/20 09:33 Platelet Estimate Consistent w auto 03/15/20 09:33 Clumped Platelets Not Reportable 03/15/20 09:33 Plt Clumps, EDTA Not Reportable 03/15/20 09:33 Large Platelets Not Reportable 03/15/20 09:33 Giant Platelets Not Reportable 03/15/20 09:33 Platelet Satelliting Not Reportable 03/15/20 09:33 Plt Morphology Comment Not Reportable 03/15/20 09:33 RBC Morphology Not Reportable 03/15/20 09:33 Dimorphic RBCs Not Reportable 03/15/20 09:33 Polychromasia Not Reportable 03/15/20 09:33 Hypochromasia Not Reportable 03/15/20 09:33 Poikilocytosis Few 03/15/20 09:33 Anisocytosis Few 03/15/20 09:33 Microcytosis Not Reportable 03/15/20 09:33 Macrocytosis Not Reportable 03/15/20 09:33 Spherocytes Not Reportable 03/15/20 09:33 Pappenheimer Bodies Not Reportable 03/15/20 09:33 Sickle Cells Not Reportable 03/15/20 09:33 Target Cells Not Reportable 03/15/20 09:33 Tear Drop Cells Rare 03/15/20 09:33 Ovalocytes Rare 03/15/20 09:33 Helmet Cells Not Reportable 03/15/20 09:33 Quintero-Brea Bodies Not Reportable 03/15/20 09:33 [place] Rings Not Reportable 03/15/20 09:33 Moraima Cells Not Reportable 03/15/20 09:33 Bite Cells Not Reportable 03/15/20 09:33 Crenated Cell Not Reportable 03/15/20 09:33 Elliptocytes Not Reportable 03/15/20 09:33 Acanthocytes (Spur) Not Reportable 03/15/20 09:33 Rouleaux Not Reportable 03/15/20 09:33 Hemoglobin C Crystals Not Reportable 03/15/20 09:33 Schistocytes Not Reportable 03/15/20 09:33 Malaria parasites Not Reportable 03/15/20 09:33 Raul Bodies Not Reportable 03/15/20 09:33 Hem Pathologist Commnt No 03/15/20 09:33 PT 13.4 Sec. (12.2-14.9) 03/10/20 03:54 INR 1.01 (0.87-1.13) 03/10/20 03:54 APTT 32.6 Sec. (24.2-36.6) 03/10/20 03:54 ABG pH 7.398 pH Units (7.350-7.450) 03/10/20 05:20 ABG pCO2 44.2 mm Hg 03/10/20 05:20 ABG pO2 121.0 mm Hg (80.0-90.0) H 03/10/20 05:20 ABG HCO3 26.6 mmol/L (20.0-26.0) H 03/10/20 05:20 ABG O2 Saturation 98.3 % (95.0-99.0) 03/10/20 05:20 ABG O2 Content 14.4 (0.0-44) 03/10/20 05:20 ABG Base Excess 1.5 mmol/L (-2.0-3.0) 03/10/20 05:20 ABG Hemoglobin 10.5 gm/dl (12.0-16.0) L 03/10/20 05:20 ABG Carboxyhemoglobin 1.5 % (0.0-5.0) 03/10/20 05:20 ABG Methemoglobin 0.5 % (0.0-1.5) 03/10/20 05:20 Oxyhemoglobin 96.3 % (95.0-99.0) 03/10/20 05:20 FiO2 30 % 03/10/20 05:20 Sodium 141 mmol/L (137-145) 03/15/20 09:33 Potassium 4.0 mmol/L (3.6-5.0) 03/15/20 09:33 Chloride 97.9 mmol/L (98-107) L 03/15/20 09:33 Carbon Dioxide 29 mmol/L (22-30) 03/15/20 09:33 Anion Gap 18 mmol/L 03/15/20 09:33 BUN 30 mg/dL (7-17) H 03/15/20 09:33 Creatinine 0.8 mg/dL (0.6-1.2) 03/15/20 09:33 Estimated GFR > 60 ml/min 03/15/20 09:33 BUN/Creatinine Ratio 38 % 03/15/20 09:33 Glucose 245 mg/dL (65-100) H 03/15/20 09:33 POC Glucose 100 (70-105) 03/16/20 15:45 Hemoglobin A1c 4.9 % (4-6) 03/10/20 08:35 Calcium 9.8 mg/dL (8.4-10.2) 03/15/20 09:33 Total Bilirubin 0.20 mg/dL (0.1-1.2) 03/15/20 09:33 AST 12 units/L (5-40) 03/15/20 09:33 ALT 13 units/L (7-56) 03/15/20 09:33 Alkaline Phosphatase 55 units/L (35-129) 03/15/20 09:33 Troponin T < 0.010 ng/mL (0.00-0.029) 03/10/20 03:54 NT-Pro-B Natriuret Pep 170.1 pg/mL (0-900) 03/10/20 03:54 Total Protein 6.0 g/dL (6.3-8.2) L 03/15/20 09:33 Albumin 3.8 g/dL (3.9-5) L 03/15/20 09:33 Albumin/Globulin Ratio 1.7 % 03/15/20 09:33 Coronavirus (PCR) Negative (Negative) 03/16/20 Unknown Rebollar/IV: Voiding Method Bedside Commode IV Catheter Type [Right Upper INT / Saline Lock arm] IV Catheter Type [Right Hand] INT / Saline Lock Active Medications - Current Medications Current Medications: Generic Name Dose Route Start Last Admin Trade Name Freq PRN Reason Stop Dose Admin Acetaminophen 650 mg 03/10/20 07:59 03/13/20 18:19 Tylenol PO 650 mg Q6H PRN Administration Pain MILD(1-3)/Fever >100.5/RABAGO Alprazolam 0.25 mg 03/11/20 09:18 03/14/20 09:13 Xanax PO 0.25 mg Q8H PRN Administration Anxiety Arformoterol Tartrate 15 mcg 03/11/20 08:00 03/16/20 07:29 Brovana Nebu IH 15 mcg Q12HRT OLEG Administration Bisacodyl 10 mg 03/14/20 10:00 03/14/20 09:12 Dulcolax PO 10 mg QDAY PRN Administration Constipation Bisacodyl 10 mg 03/14/20 10:00 Dulcolax SD QDAY PRN Constipation Budesonide 0.5 mg 03/11/20 08:00 03/16/20 07:29 Pulmicort IH 0.5 mg Q12HRT OLEG Administration Enoxaparin Sodium 40 mg 03/10/20 22:00 03/15/20 21:49 Enoxaparin SUB-Q 40 mg QDAY@2200 OLEG Administration Famotidine 20 mg 03/11/20 10:00 03/16/20 10:08 Pepcid PO 20 mg DAILY OLEG Administration Furosemide 20 mg 03/13/20 10:00 03/16/20 10:08 Lasix PO 20 mg QDAY OLEG Administration Hydralazine HCl 10 mg 03/10/20 09:06 Apresoline IV Q4HR PRN Hypertension Hydralazine HCl 25 mg 03/11/20 14:00 03/16/20 13:53 Apresoline PO 25 mg Q8HR OLEG Administration Insulin Human Lispro 0 unit 03/10/20 11:30 03/16/20 18:51 Humalog SUB-Q Not Given ACHS OLEG Protocol Ipratropium [place] 0.5 mg 03/16/20 14:00 03/16/20 13:15 Atrovent IH 0.5 mg TIDRT OLEG Administration Levalbuterol HCl 0.63 mg 03/10/20 08:07 03/12/20 13:12 Xopenex IH 0.63 mg Q8HRT PRN Administration Shortness Of Breath Metoclopramide HCl 10 mg 03/10/20 07:59 Reglan IV Q6H PRN Nausea And Vomiting Oxycodone/Acetaminophen 1 tab 03/10/20 07:59 03/14/20 18:15 Percocet 5/325 PO 1 tab Q6H PRN Administration Pain, Moderate (4-6) Prednisolone Acetate 1 drops 03/14/20 10:00 03/16/20 10:08 Pred Forte 1% OU 1 drops BID OLEG Administration Prednisone 60 mg 03/17/20 10:00 Deltasone PO QDAY OLEG Sodium Chloride 10 ml 03/10/20 10:00 03/16/20 10:09 Sodium Chloride Flush Syringe 10 Ml IV 10 ml BID OLEG Administration Sodium Chloride 10 ml 03/10/20 07:59 Sodium Chloride Flush Syringe 10 Ml IV PRN PRN LINE FLUSH
[2020-03-16] MEDS: ENOXAPARIN 40 MG/0.4 ML INJ SUB-Q SCH (22:13)
[2020-03-17] MEDS: hydrALAZINE 25 MG TAB PO SCH ×2 (05:54→14:16)
[2020-03-17] MEDS: BUDESONIDE 0.5 MG/2 ML NEBU IH SCH (08:27)
[2020-03-17] MEDS: ARFORMOTEROL 15 MCG/2 ML NEBU IH SCH (08:27)
[2020-03-17] MEDS: IPRATROPIUM 0.02% NEBU 2.5 ML IH SCH ×2 (08:28→14:17)
[2020-03-17] MEDS: INSULIN LISPRO 100 UNIT/ML VIAL 3 mL SUB-Q SCH ×2 (08:53→12:00)
[2020-03-17] MEDS ORDERED: predniSONE 20 MG TAB PO SCH (10:00)
[2020-03-17] MEDS: FUROSEMIDE 40 MG TAB PO SCH (10:27)
[2020-03-17] MEDS: prednisoLONE ACETATE 1% OPHTH SUSP 5 ML OU SCH (10:27)
[2020-03-17] MEDS: FAMOTIDINE 20 MG TAB PO SCH (10:27)
--- NOTE | 2020-03-17 13:15 | Progress Note ---
Assessment and Plan 70 y/o female with acute exacerbation of COPD 1. Will change to Prednisone 60 daily. Would taper as follows: 60 daily for 4 days, 40 daily for 4 days, 20 daily for 4 days then 10 daily for 4 days then stop. 2. Continue BID Pulmicort and Brovana, resume home regimen at discharge. 3. Continue supplemental oxygen, per report, patient is on this at home 4. Patient continues to refuse nighttime PPV. Maybe her machine was taken from her for lack of use/compliance? Appreciate RT continuing to document. No objection to discharge Subjective Date of service: 03/17/20 Principal diagnosis: COPD exac. Interval history: No acute events. Still not discharged Objective Vital Signs - 12hr 03/17/20 03/17/20 03/17/20 05:09 05:54 08:28 Temperature 97.6 F Pulse Rate 91 H 91 H Pulse Rate [ 83 Throughout] Respiratory 16 Rate Respiratory 18 Rate [ Throughout] Blood Pressure 126/55 126/55 O2 Sat by Pulse 99 Oximetry 03/17/20 11:25 Temperature 99.4 F Pulse Rate 132 H Pulse Rate [ Throughout] Respiratory 28 H Rate Respiratory Rate [ Throughout] Blood Pressure 139/84 O2 Sat by Pulse 98 Oximetry Constitutional: no acute distress, alert Eyes: non-icteric ENT: oropharynx moist Neck: supple Effort: mildly labored Ascultation: Bilateral: diminished breath sounds, wheezes Percussion: Bilateral: not dull Tactile fremitus: Bilateral: normal Cardiovascular: regular rate and rhythm Gastrointestinal: normoactive bowel sounds, soft, non-tender, non-distended Extremities: no cyanosis, no edema, pink and warm Neurologic: normal mental status, non-focal exam Psychiatric: mood appropriate, affect normal CBC and BMP: 03/15/20 09:33 03/15/20 09:33 ABG, PT/INR, D-dimer: ABG ABG pH 7.398 pH Units (7.350-7.450) 03/10/20 05:20 ABG pCO2 44.2 mm Hg 03/10/20 05:20 ABG pO2 121.0 mm Hg (80.0-90.0) H 03/10/20 05:20 ABG O2 Saturation 98.3 % (95.0-99.0) 03/10/20 05:20 PT/INR, D-dimer PT 13.4 Sec. (12.2-14.9) 03/10/20 03:54 INR 1.01 (0.87-1.13) 03/10/20 03:54 Abnormal lab findings: Abnormal Labs 03/10/20 03/10/20 03/10/20 03:54 03:54 05:20 RBC Hgb Hct RDW 16.5 H [place] % (Auto) 12.8 H Lymph # 1.1 L Seg Neuts % (Manual) Lymphocytes % (Manual) Lymphocytes # (Manual) ABG pO2 121.0 H ABG HCO3 26.6 H ABG Hemoglobin 10.5 L Sodium 146 H Chloride BUN Glucose 101 H POC Glucose Total Protein Albumin 03/10/20 03/10/20 03/11/20 09:02 20:08 05:05 RBC 3.27 L Hgb 9.9 L Hct 30.1 L RDW 16.1 H [place] % (Auto) Lymph # Seg Neuts % (Manual) 79.0 H Lymphocytes % (Manual) 10.0 L Lymphocytes # (Manual) 0.6 L ABG pO2 ABG HCO3 ABG Hemoglobin Sodium Chloride BUN Glucose POC Glucose 153 H 198 H Total Protein Albumin 03/11/20 03/11/20 03/11/20 05:05 13:16 16:35 RBC Hgb Hct RDW [place] % (Auto) Lymph # Seg Neuts % (Manual) Lymphocytes % (Manual) Lymphocytes # (Manual) ABG pO2 ABG HCO3 ABG Hemoglobin Sodium Chloride BUN 18 H Glucose 188 H POC Glucose 197 H 200 H Total Protein Albumin 03/11/20 03/12/20 03/12/20 21:24 04:31 08:16 RBC Hgb Hct RDW [place] % (Auto) Lymph # Seg Neuts % (Manual) Lymphocytes % (Manual) Lymphocytes # (Manual) ABG pO2 ABG HCO3 ABG Hemoglobin Sodium Chloride BUN 31 H Glucose 139 H POC Glucose 108 H 161 H Total Protein Albumin 03/12/20 03/12/20 03/12/20 12:22 12:32 17:26 RBC Hgb Hct RDW [place] % (Auto) Lymph # Seg Neuts % (Manual) Lymphocytes % (Manual) Lymphocytes # (Manual) ABG pO2 ABG HCO3 ABG Hemoglobin Sodium Chloride BUN Glucose POC Glucose 134 H 125 H 220 H Total Protein Albumin 03/12/20 03/13/2020 22:04 07:46 11:53 RBC Hgb Hct RDW [place] % (Auto) Lymph # Seg Neuts % (Manual) Lymphocytes % (Manual) Lymphocytes # (Manual) ABG pO2 ABG HCO3 ABG Hemoglobin Sodium Chloride BUN Glucose POC Glucose 149 H 204 H 226 H Total Protein Albumin 03/13/20 03/13/20 03/14/20 16:55 21:59 08:28 RBC Hgb Hct RDW [place] % (Auto) Lymph # Seg Neuts % (Manual) Lymphocytes % (Manual) Lymphocytes # (Manual) ABG pO2 ABG HCO3 ABG Hemoglobin Sodium Chloride BUN Glucose POC Glucose 151 H 196 H 171 H Total Protein Albumin 03/14/20 03/14/20 03/15/20 17:11 21:29 08:18 RBC Hgb Hct RDW [place] % (Auto) Lymph # Seg Neuts % (Manual) Lymphocytes % (Manual) Lymphocytes # (Manual) ABG pO2 ABG HCO3 ABG Hemoglobin Sodium Chloride BUN Glucose POC Glucose 134 H 235 H 153 H Total Protein Albumin 03/15/20 03/15/20 03/15/20 09:33 09:33 12:42 RBC Hgb Hct RDW 16.1 H [place] % (Auto) Lymph # Seg Neuts % (Manual) 89.0 H Lymphocytes % (Manual) 8.0 L Lymphocytes # (Manual) 0.5 L ABG pO2 ABG HCO3 ABG Hemoglobin Sodium Chlor[place] 97.9 L BUN 30 H Glucose 245 H POC Glucose 130 H Total Protein 6.0 L Albumin 3.8 L 03/15/20 03/15/20 03/16/20 17:33 22:10 10:20 RBC Hgb Hct RDW [place] % (Auto) Lymph # Seg Neuts % (Manual) Lymphocytes % (Manual) Lymphocytes # (Manual) ABG pO2 ABG HCO3 ABG Hemoglobin Sodium Chloride BUN Glucose POC Glucose 214 H 123 H 255 H Total Protein Albumin 03/16/20 03/17/20 03/17/20 11:30 07:55 12:17 RBC Hgb Hct RDW [place] % (Auto) Lymph # Seg Neuts % (Manual) Lymphocytes % (Manual) Lymphocytes # (Manual) ABG pO2 ABG HCO3 ABG Hemoglobin Sodium Chloride BUN Glucose POC Glucose 177 H 115 H 117 H Total Protein Albumin
[2020-03-17 14:17] VITALS: BP 130/80
== END 2020-03-17 18:24 | disposition home health service (06) | DRG 189 ==
LOC: EDBD → EDSEX → ED 03:32 → IMCU 05:32 → 3A 03-11 18:12 → OBSVTOIN 03-12 08:35
PROVIDERS: ADMIT Internal Medicine Geriatric Medicine; ATTEND Internal Medicine
PROC: 4A033R1 Measurement of Arterial Saturation, Peripheral, Percutaneous Approach (ICD-10-PCS; principal; 2020-03-10)
PROC: 5A09357 Assistance with Respiratory Ventilation, Less than 24 Consecutive Hours, Continuous Positive Airway Pressure (ICD-10-PCS; 2020-03-10)
PROC: 5A09357 Assistance with Respiratory Ventilation, Less than 24 Consecutive Hours, Continuous Positive Airway Pressure (ICD-10-PCS; 2020-03-11)
PROC: 5A09357 Assistance with Respiratory Ventilation, Less than 24 Consecutive Hours, Continuous Positive Airway Pressure (ICD-10-PCS; 2020-03-13)
DX: J96.01 Acute respiratory failure with hypoxia (principal); J44.1 Chronic obstructive pulmonary disease with (acute) exacerbation; E87.0 Hyperosmolality and hypernatremia; I10 Essential (primary) hypertension; R73.9 Hyperglycemia, unspecified; F69 Unspecified disorder of adult personality and behavior; Z99.81 Dependence on supplemental oxygen; Z87.891 Personal history of nicotine dependence; Z82.49 Family history of ischemic heart disease and other diseases of the circulatory system; Z03.818 Encounter for observation for suspected exposure to other biological agents ruled out
CPT/HCPCS: 36415; 36600; 71045; 80048; 80053; 82803; 82962; 83036; 83880; 84484; 85007; 85025; 85610; 85730; 93005; 94640; 94644; 94660; 94760; G0378; J1650; J1940; J1956; J2270; J2405; J2920; J2930; J3475; J7512; U0003-CS